=== PATIENT | female | born 1980 | race American Indian/Alaskan Native ===

== ENCOUNTER 2021-01-09 08:46 | Emergency (ER) | payer SELFPAY ==
--- NOTE | 2021-01-09 09:13 | Emergency Department Report ---
ED Seizure HPI - General Stated Complaint: SEIZURE Time Seen by Provider: 01/09/21 08:58 Source: patient, EMS Mode of arrival: Stretcher Limitations: No Limitations - History of Present Illness Initial Comments: 41-year-old female the past medical history of seizures, heavy alcohol use, and anxiety presents to the hospital with "seizure-like activity". Patient apparently was found by EMS with a heart rate in 170s, tachypneic, with cramping/contraction of her fingers and jaw. Patient states she has been feeling upset and anxious since last night and her anxiety got the best of her this morning. She had uncontrollable contractions of her fingers which then spread to her feet and her jaw. Patient has had similar reactions in the past secondary to anxiety. Patient received Versed 2 mg with improvement in symptoms and vital signs. Patient has a history of grand mal seizures. Last dose of Keppra was this a.m. patient complains of generalized muscle aches secondary to muscle contractions. Patient also takes Depakote. Patient admits to drinking 1/2 pint of vodka several days a week. - Related Data Previous Rx's Medication Instructions Recorded Last Taken Type levETIRAcetam [Keppra TAB] 500 mg PO BID #60 tablet 11/06/19 Unknown Rx Ondansetron [Zofran Odt] 4 mg PO Q8HR PRN #14 tab.rapdis 01/09/21 Unknown Rx Potassium Chloride [K-Dur] 20 meq PO BID #4 tab 01/09/21 Unknown Rx Allergies Allergy/AdvReac Type Severity Reaction Status Date / Time Penicillins AdvReac Itching Verified 11/06/19 14:38 ED Review of Systems ROS: Stated complaint: SEIZURE Other details as noted in HPI Comment: All other systems reviewed and negative ED Past Medical Hx - Past Medical History Hx Seizures: Yes - Social History Smoking Status: Never Smoker - Medications Home Medications: Home Medications Medication Instructions Recorded Confirmed Last Taken Type levETIRAcetam [Keppra TAB] 500 mg PO BID #60 tablet 11/06/19 Unknown Rx Ondansetron [Zofran Odt] 4 mg PO Q8HR PRN #14 tab.rapdis 01/09/21 Unknown Rx Potassium Chloride [K-Dur] 20 meq PO BID #4 tab 01/09/21 Unknown Rx ED Physical Exam - Other Other exam information: General: No acute distress Head: Atraumatic Eyes: normal appearance ENT: Moist mucous membranes Neck: Normal appearance, no midline tenderness Chest: Clear to auscultation bilaterally CV: Regular rate and rhythm Abdomen: Soft, normal bowel sounds, nontender, nondistended, no rebound or guarding Back: Normal inspection Extremity: Normal inspection, full range of motion Neuro: Alert O x 3, no facial asymmetry, speech clear, no gross motor sensory deficit Psych: Appropriate behavior Skin: No rash ED Course Vital Signs 01/09/21 09:39 Temperature 98.2 F Pulse Rate 94 H Respiratory 14 Rate Blood Pressure 102/59 O2 Sat by Pulse 100 Oximetry - Reevaluation(s) Reevaluation #1: 01/09/21 15:44 Patient feels much better after ED treatment. ED Medical Decision Making - Lab Data Result diagrams: 01/09/21 09:01 01/09/21 15:07 Lab Results 01/09/21 01/09/21 01/09/21 Range/Units 09:01 09:01 09:01 WBC 6.0 (4.5-11.0) K/mm3 RBC 3.59 L (3.65-5.03) M/mm3 Hgb 12.9 (10.1-14.3) gm/dl Hct 37.1 (30.3-42.9) % MCV 103 H (79-97) fl MCH 36 H (28-32) pg MCHC 35 H (30-34) % RDW 17.4 H (13.2-15.2) % Plt Count 140 (140-440) K/mm3 Lymph % (Auto) 22.2 (13.4-35.0) % [place] % (Auto) 9.4 H (0.0-7.3) % Eos % (Auto) 0.1 (0.0-4.3) % Baso % (Auto) 0.5 (0.0-1.8) % Lymph # (Auto) 1.3 (1.2-5.4) K/mm3 [place] # (Auto) 0.6 (0.0-0.8) K/mm3 Eos # (Auto) 0.0 (0.0-0.4) K/mm3 Baso # (Auto) 0.0 (0.0-0.1) K/mm3 Seg Neutrophils % 67.8 (40.0-70.0) % Seg Neutrophils # 4.1 (1.8-7.7) K/mm3 Sodium 144 (137-145) mmol/L Potassium 2.5 L* (3.6-5.0) mmol/L Chloride 95.2 L (98-107) mmol/L Carbon Dioxide 19 L (22-30) mmol/L Anion Gap 32 mmol/L BUN 5 L (7-17) mg/dL Creatinine 0.4 L (0.6-1.2) mg/dL Estimated GFR > 60 ml/min BUN/Creatinine Ratio 13 % Glucose 75 (65-100) mg/dL Calcium 8.7 (8.4-10.2) mg/dL Magnesium 1.40 L (1.7-2.3) mg/dL HCG, Qual (Negative) Urine Color (Yellow) Urine Turbidity (Clear) Urine pH (5.0-7.0) Ur Specific [place] (1.003-1.030) Urine Protein (Negative) mg/dL Urine Glucose (UA) (Negative) mg/dL Urine Ketones (Negative) mg/dL Urine Blood (Negative) Urine Nitrite (Negative) Urine Bilirubin (Negative) Urine Urobilinogen (<2.0) mg/dL Ur Leukocyte Esterase (Negative) Urine WBC (Auto) (0.0-6.0) /HPF Urine RBC (Auto) (0.0-6.0) /HPF U Epithel Cells (Auto) (0-13.0) /HPF Urine Bacteria (Auto) (Negative) /HPF Urine Mucus /HPF Urine Opiates Screen Urine Methadone Screen Ur Barbiturates Screen Ur Phencyclidine Scrn Ur Amphetamines Screen U Benzodiazepines Scrn Urine Cocaine Screen U Marijuana (THC) Screen Drugs of Abuse Note Plasma/Serum Alcohol 0.07 (0-0.07) % 01/09/21 01/09/21 01/09/21 Range/Units 09:01 09:51 09:51 WBC (4.5-11.0) K/mm3 RBC (3.65-5.03) M/mm3 Hgb (10.1-14.3) gm/dl Hct (30.3-42.9) % MCV (79-97) fl MCH (28-32) pg MCHC (30-34) % RDW (13.2-15.2) % Plt Count (140-440) K/mm3 Lymph % (Auto) (13.4-35.0) % [place] % (Auto) (0.0-7.3) % Eos % (Auto) (0.0-4.3) % Baso % (Auto) (0.0-1.8) % Lymph # (Auto) (1.2-5.4) K/mm3 [place] # (Auto) (0.0-0.8) K/mm3 Eos # (Auto) (0.0-0.4) K/mm3 Baso # (Auto) (0.0-0.1) K/mm3 Seg Neutrophils % (40.0-70.0) % Seg Neutrophils # (1.8-7.7) K/mm3 Sodium (137-145) mmol/L Potassium (3.6-5.0) mmol/L Chloride (98-107) mmol/L Carbon Dioxide (22-30) mmol/L Anion Gap mmol/L BUN (7-17) mg/dL Creatinine (0.6-1.2) mg/dL Estimated GFR ml/min BUN/Creatinine Ratio % Glucose (65-100) mg/dL Calcium (8.4-10.2) mg/dL Magnesium (1.7-2.3) mg/dL HCG, Qual Negative (Negative) Urine Color [place] (Yellow) Urine Turbidity Hazy (Clear) Urine pH 6.0 (5.0-7.0) Ur Specific [place] 1.020 (1.003-1.030) Urine Protein 100 mg/dl (Negative) mg/dL Urine Glucose (UA) Neg (Negative) mg/dL Urine Ketones 80 (Negative) mg/dL Urine Blood Neg (Negative) Urine Nitrite Pos (Negative) Urine Bilirubin Neg (Negative) Urine Urobilinogen 2.0 (<2.0) mg/dL Ur Leukocyte Esterase Tr (Negative) Urine WBC (Auto) 11.0 H (0.0-6.0) /HPF Urine RBC (Auto) 3.0 (0.0-6.0) /HPF U Epithel Cells (Auto) 12.0 (0-13.0) /HPF Urine Bacteria (Auto) 2+ (Negative) /HPF Urine Mucus 3+ /HPF Urine Opiates Screen Negative Urine Methadone Screen Negative Ur Barbiturates Screen Negative Ur Phencyclidine Scrn Negative Ur Amphetamines Screen Negative U Benzodiazepines Scrn Positive Urine Cocaine Screen Negative U Marijuana (THC) Screen Positive Drugs of Abuse Note Disclamer Plasma/Serum Alcohol (0-0.07) % 01/09/21 Range/Units 15:07 WBC (4.5-11.0) K/mm3 RBC (3.65-5.03) M/mm3 Hgb (10.1-14.3) gm/dl Hct (30.3-42.9) % MCV (79-97) fl MCH (28-32) pg MCHC (30-34) % RDW (13.2-15.2) % Plt Count (140-440) K/mm3 Lymph % (Auto) (13.4-35.0) % [place] % (Auto) (0.0-7.3) % Eos % (Auto) (0.0-4.3) % Baso % (Auto) (0.0-1.8) % Lymph # (Auto) (1.2-5.4) K/mm3 [place] # (Auto) (0.0-0.8) K/mm3 Eos # (Auto) (0.0-0.4) K/mm3 Baso # (Auto) (0.0-0.1) K/mm3 Seg Neutrophils % (40.0-70.0) % Seg Neutrophils # (1.8-7.7) K/mm3 Sodium 143 (137-145) mmol/L Potassium 4.1 D (3.6-5.0) mmol/L Chloride 102.6 (98-107) mmol/L Carbon Dioxide 22 (22-30) mmol/L Anion Gap 23 mmol/L BUN 4 L (7-17) mg/dL Creatinine 0.3 L (0.6-1.2) mg/dL Estimated GFR > 60 ml/min BUN/Creatinine Ratio 13 % Glucose 76 (65-100) mg/dL Calcium 7.6 L (8.4-10.2) mg/dL Magnesium (1.7-2.3) mg/dL HCG, Qual (Negative) Urine Color (Yellow) Urine Turbidity (Clear) Urine pH (5.0-7.0) Ur Specific [place] (1.003-1.030) Urine Protein (Negative) mg/dL Urine Glucose (UA) (Negative) mg/dL Urine Ketones (Negative) mg/dL Urine Blood (Negative) Urine Nitrite (Negative) Urine Bilirubin (Negative) Urine Urobilinogen (<2.0) mg/dL Ur Leukocyte Esterase (Negative) Urine WBC (Auto) (0.0-6.0) /HPF Urine RBC (Auto) (0.0-6.0) /HPF U Epithel Cells (Auto) (0-13.0) /HPF Urine Bacteria (Auto) (Negative) /HPF Urine Mucus /HPF Urine Opiates Screen Urine Methadone Screen Ur Barbiturates Screen Ur Phencyclidine Scrn Ur Amphetamines Screen U Benzodiazepines Scrn Urine Cocaine Screen U Marijuana (THC) Screen Drugs of Abuse Note Plasma/Serum Alcohol (0-0.07) % - EKG Data -: EKG Interpreted by Me EKG shows normal: sinus rhythm, intervals (Prolonged QT QTC 518), QRS complexes (QRS duration 94), ST-T waves (Anterior T wave inversions. No ST elevation OR) Rate: normal (89) - Medical Decision Making 41-year-old female presents to the hospital with significant carpopedal spasms, tachypnea, tachycardia prior to arrival. Treated with Versed. Symptoms likely secondary to either anxiety/panic attack as well as electrolyte abnormalities. Patient admits to heavy alcohol use with history of pancreatitis. Patient counseled on importance of cessation of alcohol however, also counseled about the risk of withdrawal symptoms if she has significant alcohol dependence. Positive UTI. Patient was treated with normal saline, IV and p.o. potassium, IV magnesium, banana bag, D5 NS, and Zofran with improvement in symptoms and improvement in laboratory values (hypokalemia and anion gap acidosis). Patient states "I feel much better". Patient will be discharged with meds - Differential Diagnosis Anxiety, seizure, electrolyte abnormalities, alcohol withdrawal Critical Care Time: No Critical care attestation.: If time is entered above; I have spent that time in minutes in the direct care of this critically ill patient, excluding procedure time. ED Disposition Clinical Impression: Panic attack, Carpopedal spasm, Alcohol abuse, Hypokalemia, Hypomagnesemia, Seizure disorder Disposition: 01 HOME / SELF CARE / HOMELESS Is pt being admited?: No Does the pt Need Aspirin: No Condition: Stable Instructions: Panic Attack, [id number], Alcohol Abuse and Dependence Information, Adult, Managing Anxiety, Adult, Hypokalemia, Hypomagnesemia, Seizure, Adult, [id number] Additional Instructions: Take the medication as prescribed. Follow-up with your doctor or doctor/clinic provided. Return if symptoms worsen as indicated by your discharge instructions. SUBSTANCE ABUSE PROGRAMS: Sober Living [place]: Location: [place], [place] Address: [address] [place] [address] [facility]: Address: [address] [place] [address] [facility]: Address: [address] [place] [address] [facility]: Address: [address] [place] [address] Prescriptions: Potassium Chloride [K-Dur] 20 meq PO BID #4 tab Ondansetron [Zofran Odt] 4 mg PO Q8HR PRN #14 tab.rapdis PRN Reason: Nausea And Vomiting Referrals: PRIMARY CARE, [Primary Care Provider] - 3-5 Days [facility] [Provider Group] - 3-5 Days Time of Disposition: 15:50
[2021-01-09 09:17] LABS: Basophils % (Auto) 0.5 % (0.0-1.8); Eosinophils % (Auto) 0.1 % (0.0-4.3); Hematocrit 37.1 % (30.3-42.9); Hemoglobin 12.9 gm/dl (10.1-14.3); Lymphocytes # (Auto) 1.3 K/mm3 (1.2-5.4); Lymphocytes % (Auto) 22.2 % (13.4-35.0); Mean Corpuscular HGB Conc 35 % (30-34); Mean Corpuscular Volume 103 fl (79-97); Monocytes # (Auto) 0.6 K/mm3 (0.0-0.8); Monocytes % (Auto) 9.4 % (0.0-7.3); Platelet Count 140 K/mm3 (140-440); Red Blood Count 3.59 M/mm3 (3.65-5.03); Red Cell Distribution Width 17.4 % (13.2-15.2)
[2021-01-09 09:30] LABS: Blood Urea Nitrogen 5 mg/dL (7-17); Calcium 8.7 mg/dL (8.4-10.2); Hemolysis Index 18
[2021-01-09 09:32] LABS: BUN/Creatinine Ratio 13
[2021-01-09] MEDS ORDERED: KETOROLAC 30 MG/1 ML INJ IV ONE (09:32)
[2021-01-09] MEDS ORDERED: MAGNESIUM SULFATE 2 GM/50 ML BAG IV ONE (09:44)
[2021-01-09] MEDS ORDERED: POTASSIUM CHLORIDE ER 20 MEQ TAB PO ONE (09:44)
[2021-01-09] MEDS ORDERED: THIAMINE 100 MG, FOLIC ACID 1 MG, MULTIPLE VITAMIN INJ, ADULT 10 ML in SODIUM CHLORIDE ... IV NR (10:00)
[2021-01-09 10:24] LABS: Amphetamine Screen,Urine Negative; Cocaine Screen,Urine Negative; Methadone Screen,Urine Negative; Opiate Screen,Urine Negative
[2021-01-09] MEDS ORDERED: POTASSIUM CHLORIDE 10 MEQ 10 MEQ/100 ML BAG IV ONE (10:28)
[2021-01-09 10:40] LABS: Benzodiazepines Screen,Urine Positive; Cannabinoid Screen,Urine Positive
[2021-01-09] MEDS ORDERED: SODIUM CHLORIDE 0.9% 1000 ML 1,000 ML ONE (12:47)
[2021-01-09 13:23] LABS: Bacteria,Urine 2+ /HPF (Negative); Bilirubin,Urine NEG (Negative); Blood,Urine NEG (Negative); Color,Urine Amber (Yellow); Mucus,Urine 3+ /HPF
[2021-01-09] MEDS ORDERED: NITROFURANTOIN MONOHYD/M-CRYST 100 MG CAP PO ONE (13:59)
[2021-01-09] MEDS ORDERED: D5W/0.9% NACL 1,000 ML IV SCH (14:00)
[2021-01-09] MEDS ORDERED: ONDANSETRON 4 MG/2 ML INJ IV ONE (14:20)
[2021-01-09] MEDS ORDERED: LORazepam 2 MG TAB PO PRN ×2 (14:24)
[2021-01-09 15:37] LABS: Blood Urea Nitrogen 4 mg/dL (7-17); Calcium 7.6 mg/dL (8.4-10.2); Hemolysis Index 21
[2021-01-09 15:38] LABS: BUN/Creatinine Ratio 13
[2021-01-09 15:49] VITALS: BP 124/76
--- NOTE | 2021-01-13 10:09 | Electrocardiograph Report ---
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
== END 2021-01-09 15:55 | disposition home or self-care (01) ==
LOC: ED 08:46
DX: F41.0 Panic disorder [episodic paroxysmal anxiety] (principal); E87.6 Hypokalemia; G40.909 Epilepsy, unspecified, not intractable, without status epilepticus; E83.42 Hypomagnesemia; R29.0 Tetany; Z88.0 Allergy status to penicillin; Z79.899 Other long term (current) drug therapy
CPT/HCPCS: 36415; 80048; 80307; 81001; 83735; 84703; 85025; 87076; 87086; 87186; 93005; 96365; 96366; 96367; 96375; 99284; J1885; J2405; J3411; J3475; J3480; J7030; J7042; 80320; G0480

== ENCOUNTER 2021-03-16 15:57 | Inpatient (IN) | payer SELFPAY ==
[2021-03-16] MEDS ORDERED: SODIUM CHLORIDE 0.9% 1000 ML 1,000 ML IV ONE (18:07)
[2021-03-16] MEDS ORDERED: levETIRAcetam 500 MG TAB PO ONE (18:08)
[2021-03-16] MEDS ORDERED: ONDANSETRON 4 MG/2 ML INJ IV ONE (18:08)
--- NOTE | 2021-03-16 18:13 | Emergency Department Report ---
HPI - General Chief Complaint: Anxiety Time Seen by Provider: 03/16/21 17:51 - HPI HPI: 41-year-old female with history of seizure disorder on Keppra and Depakote presents via EMS after she apparently had a seizure this morning. The patient states that today she has felt nauseated all day and every time she tries to eat she has vomited multiple times. She says later in the day she began to experience cramping in her hands and anxiety which she says typically happens before she has a seizure. She says after that she called 911 and paramedics arrived. According to the EMS report, the patient never displayed any seizure- like activity or postictal state but was in fact anxious appearing. The patient states that she has taken all doses of her seizure medication but threw up her Keppra this morning due to nausea. She has some mild abdominal pain which she says is worse on the right side. The patient also admits to drinking approximately 1 pint of liquor per day. She denies use of any other substances or cigarettes. There are otherwise no known aggravating or alleviating factors. Her LMP was March 11. She denies any associated fever/chills, headache, vision change, neck pain, chest pain, shortness of breath, cough, dysuria, back pain, focal weakness, sensory changes, vaginal bleeding, vaginal discharge, or any other complaints. ED Past Medical Hx - Past Medical History Previous Medical History?: Yes Hx Seizures: Yes Additional medical history: anxiety - Social History Smoking Status: Never Smoker Substance Use Type: Alcohol (1 pint liquor/day) - Medications Home Medications: Home Medications Medication Instructions Recorded Confirmed Last Taken Type levETIRAcetam [Keppra TAB] 500 mg PO BID #60 tablet 11/06/19 Unknown Rx Nitrofurantoin Juab/M-Cryst 100 mg PO Q12HR #10 capsule 01/09/21 Unknown Rx [Macrobid CAP] Ondansetron [Zofran Odt] 4 mg PO Q8HR PRN #14 tab.rapdis 01/09/21 Unknown Rx Potassium Chloride [K-Dur] 20 meq PO BID #4 tab 01/09/21 Unknown Rx ED Review of Systems ROS: Stated complaint: ANXIETY Other details as noted in HPI Constitutional: denies: chills, fever Eyes: denies: eye pain, vision change ENT: denies: throat pain, congestion Respiratory: denies: cough, shortness of breath Cardiovascular: denies: chest pain, palpitations, syncope Gastrointestinal: abdominal pain, nausea, vomiting. denies: diarrhea, constipation Genitourinary: denies: dysuria, frequency, hematuria, discharge Musculoskeletal: denies: back pain, joint swelling Skin: denies: rash, lesions Neurological: denies: headache, weakness, numbness, paresthesias Psychiatric: anxiety. denies: depression Physical Exam - Physical Exam Vital Signs: Vital Signs 03/16/21 15:58 Temperature 98.9 F Pulse Rate 99 H Respiratory 14 Rate Blood Pressure 129/86 [Left] O2 Sat by Pulse 100 Oximetry Physical Exam: GENERAL: Well developed and well nourished. No acute distress HEAD: Normocephalic. No obvious signs of trauma. ENT: Dry mucous membranes. EYES: Extraocular movements are intact. Pupils are equal round and reactive to light bilaterally. Scleral icterus bilaterally NECK: Supple. Full ROM is intact. Trachea is midline. LUNGS: Nonlabored breathing. Equal chest rise bilaterally. Clear to auscultation bilaterally. CARDIOVASCULAR: Tachycardic but with regular rhythm. No murmurs or rubs. VASCULAR: Cap refill < 2 seconds ABDOMEN: Abdomen is soft and nondistended. There is tenderness to palpation of the right upper quadrant with hepatomegaly. There is no guarding or rebound tenderness. SKIN: Skin is warm and dry NEURO: Patient is awake, alert, and oriented. 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 No focal deficits. Normal motor and sensory exam throughout. Normal speech. MUSCULOSKELETAL: No obvious deformities. No significant tenderness. Normal ROM throughout. BACK/SPINE: No midline tenderness or step-offs of the C/T/L spine. No costovertebral angle tenderness. ED Course Vital Signs 03/16/21 15:58 Temperature 98.9 F Pulse Rate 99 H Respiratory 14 Rate Blood Pressure 129/86 [Left] O2 Sat by Pulse 100 Oximetry ED Medical Decision Making - Lab Data Result diagrams: 03/16/21 19:04 03/16/21 19:04 - EKG Data -: EKG Interpreted by Me - EKG Data 03/16/21 18:16 Normal sinus rhythm. Normal axis. There is prolonged QT with QTC of 547. Ot herwise normal intervals. No ectopy. Nonspecific T wave inversions. There are no significant ST segment abnormalities. - Radiology Data Radiology results: report reviewed - Medical Decision Making 41-year-old female presenting after she apparently had a seizure at home although EMS denies that the patient had any seizure-like activity or postictal state. Nonetheless, patient has had 1 day of abdominal pain and nausea/vomiting and admits to vomiting her morning dose of Keppra today. Of note, patient admits to drinking 1 pint of liquor per day and her last drink was last night. She is afebrile and with normal vital signs although on my exam the patient is tachycardic in the 110s. Physical examination reveals dry mucous membranes as well as scleral icterus and right upper quadrant tenderness in the abdomen with hepatomegaly. She is alert and oriented and has a nonfocal neurologic exam. We will perform broad work-up with a full set of labs to include LFTs, lipase, , and alcohol levels. We will also obtain ultrasound of the right upper quadrant to assess for evidence of cholecystitis versus choledocholi thiasis. We will obtain CT of the abdomen and pelvis with IV contrast to assess for evidence of pancreatitis, cholecystitis, appendicitis, colitis, diverticulitis, versus other intra-abdominal abnormality to explain the patient's symptoms. We will give 1 L of IV fluids, Zofran, and her morning dose of Keppra. Patient's EKG reveals no ischemic findings but there is prolonged QT interval. We will therefore give 2 mg of magnesium continue to monitor closely. Labs reveal no significant leukocytosis or anemia. Kidney function is normal. However, there are several electrolyte abnormalities including hypokalemia with potassium of 3.1, which we will replete. There is hypomagnesemia with magnesium of 1.4 which we have already repleted. T bili is elevated at 6.6 with D bili of 4.4. AST is mildly elevated at 200. Alk phos is mildly elevated at 200. Right upper quadrant ultrasound reveals only hepatomegaly with normal diameter CBD. CT of the abdomen pelvis reveals hepatomegaly and steatosis without any other acute findings. Given the patient has findings consistent with acute liver failure likely related to chronic alcohol use, she will require admission to the hospital for further work-up and management. We will also initiate CINY protocol. This was discussed with the patient expressed understanding agreement with this plan of care. I spoke with Dr. Hager, the on-call hospitalist regarding the case accepts the patient for admission and will assume care. Critical care attestation.: If time is entered above; I have spent that time in minutes in the direct care of this critically ill patient, excluding procedure time. ED Disposition Clinical Impression: Hypokalemia, Hypomagnesemia, Prolonged QT interval, Acute liver failure, Alcohol use disorder Disposition: 09 ADMITTED INPATIENT Is pt being admited?: Yes
[2021-03-16] MEDS ORDERED: MAGNESIUM SULFATE 2 GM/50 ML BAG IV ONE (18:16)
--- NOTE | 2021-03-16 19:21 | Ultrasound Report ---
ULTRASOUND ABDOMEN, LIMITED (RIGHT UPPER QUADRANT) INDICATION: RUQ tend + hepatomegaly. COMPARISON: None available. FINDINGS: Pancreas: Not well seen. The imaged portions are unremarkable. Liver: The liver is enlarged measuring 19.1 cm. There is increased echogenicity throughout the liver. Gallbladder: Normal. Bile ducts: Normal. Common Bile Duct measures 2 mm. Free fluid: None. Additional Findings: None. IMPRESSION: 1. There is hepatomegaly. There is increased echogenicity in the liver likely representing fatty infi ltration. Signer Name: Sarabjit Frias MD Signed: 03/16/2021 7:16 PM Workstation Name: [id number]
[2021-03-16 19:25] LABS: Basophils % (Auto) 0.1 % (0.0-1.8); Hematocrit 37.3 % (30.3-42.9); Hemoglobin 12.5 gm/dl (10.1-14.3); Lymphocytes # (Auto) 0.9 K/mm3 (1.2-5.4); Mean Corpuscular HGB Conc 33 % (30-34); Mean Corpuscular Volume 103 fl (79-97); Monocytes # (Auto) 0.6 K/mm3 (0.0-0.8); Monocytes % (Auto) 9.2 % (0.0-7.3); Red Blood Count 3.61 M/mm3 (3.65-5.03); Red Cell Distribution Width 15.2 % (13.2-15.2)
[2021-03-16 19:36] LABS: Platelet Count 95 K/mm3 (140-440)
[2021-03-16 19:50] LABS: Alanine Aminotransferase 54 units/L (7-56); Albumin 3.5 g/dL (3.9-5); Bilirubin,Direct 4.4 mg/dL (0-0.2); Blood Urea Nitrogen 2 mg/dL (7-17); Calcium 8.8 mg/dL (8.4-10.2); Hemolysis Index 6
[2021-03-16 20:13] LABS: BUN/Creatinine Ratio 7
[2021-03-16 20:20] LABS: Bacteria,Urine 4+ /HPF (Negative); Bilirubin,Urine MOD (Negative); Blood,Urine NEG (Negative); Color,Urine Amber (Yellow); Mucus,Urine 3+ /HPF
[2021-03-16] MEDS ORDERED: POTASSIUM CHLORIDE ER 20 MEQ TAB PO ONE (20:31)
[2021-03-16 20:36] LABS: Amphetamine Screen,Urine PRESUMPTIVE NEGATIVE; Benzodiazepines Screen,Urine PRESUMPTIVE NEGATIVE; Cannabinoid Screen,Urine PRESUMPTIVE POSITIVE; Cocaine Screen,Urine PRESUMPTIVE NEGATIVE; Methadone Screen,Urine PRESUMPTIVE NEGATIVE; Opiate Screen,Urine PRESUMPTIVE NEGATIVE
[2021-03-16 20:39] LABS: Ictotest,Urine Positive (Negative)
[2021-03-16] MEDS: POTASSIUM CHLORIDE 10 MEQ 10 MEQ/100 ML BAG IV SCH (21:07)
[2021-03-16 21:11] LABS: INR 1.36 (0.87-1.13)
[2021-03-16 21:12] LABS: Partial Thromboplastin Time 34.1 Sec. (24.2-36.6)
--- NOTE | 2021-03-16 22:04 | Cat Scan Report ---
CT ABDOMEN AND PELVIS WITH CONTRAST INDICATION / CLINICAL INFORMATION: R.U.Q. tenderness + Jaundice. TECHNIQUE: Axial CT images were obtained through the abdomen and pelvis after 100 cc Omnipaque [address] scans at this location are performed using CT dose reduction for ALARA by means of automated exposure control. COMPARISON: Limited abdominal ultrasound from earlier today. FINDINGS: LOWER CHEST: No significant abnormality. LIVER: Hepatomegaly and steatosis is again noted without other significant abnormalities. BILIARY: The gallbladder is unremarkable. No biliary ductal dilatation. PANCREAS: Generalized atrophy is noted with diffuse calcification, consistent with chronic pancreatit is. No other significant abnormality. SPLEEN: No significant abnormality. ADRENALS: No significant abnormality. KIDNEYS / URETERS: A simple cyst is seen anteriorly along the mid pole of the right kidney measuring up to 1.3 cm. No other significant abnormality. GI TRACT: No significant abnormality of the stomach, small bowel or colon. The appendix is unremarkab le. PERITONEUM: No free fluid. No free air. No fluid collection. LYMPH NODES: No significant adenopathy. VASCULATURE: No significant abnormality. URINARY BLADDER: No significant abnormality. REPRODUCTIVE ORGANS: No significant abnormality. ADDITIONAL FINDINGS: None. BONES: No significant abnormality. IMPRESSION: 1. Hepatomegaly and steatosis without other acute findings to explain the patient's right upper quadr ant tenderness/jaundice. Please correlate with liver function testing. 2. Additional findings as above. Signer Name: Jean Martino MD Signed: 03/16/2021 9:59 PM Workstation Name: [id number]
[2021-03-16] MEDS ORDERED: MAGNESIUM HYDROXIDE (MOM) ORAL LIQD UDC PO PRN (22:33)
[2021-03-16] MEDS ORDERED: MORPHINE 4 MG/1 ML INJ IV PRN (22:33)
[2021-03-16] MEDS ORDERED: IBUPROFEN 600 MG TAB PO PRN (22:33)
[2021-03-16] MEDS ORDERED: LORazepam 2 MG/ML VIAL IV PRN ×3 (22:37)
--- NOTE | 2021-03-16 22:44 | History and Physical Report ---
History of Present Illness Date of examination: 03/16/21 Date of admission: 03/16/21 21:46 Chief complaint: Anxiety Possible Seizure History of present illness: 41-year-old -[place] female with known history of seizure disorder on Keppra and Depakote presents to the emergency room via EMS today complaining of anxiety and possible seizure earlier this morning. Patient indicates that she has been having multiple episodes of nausea and vomiting today and has been having some cramps in her hands. She also indicates that she feels anxious and therefore called EMS. Patient has been compliant with her medications but has not been able to keep her medications down due to the nausea and vomiting earlier today. She drinks about a pint of alcohol almost on a daily basis. She denies any other illicit drug use. Patient denies any chest pain, no cough or shortness of breath, no headache or dizziness and no diaphoresis. She denies any fever or chills, denies any sick contacts and no recent travel, denies any contact with anyone with COVID-19. She admits she has not been fully vaccinated against COVID-19 due to her zoroastrianism beliefs. She denies any hematuria or dysuria. No bright red blood per rectum and no melena. Work-up in the emergency room today, significant findings were that of hypokalemia of 3.1, elevated AST of 200, magnesium of 1.4, UDS was positive for marijuana. EKG shows some prolonged QT. Abdominal ultrasound shows hepatomegaly and increased echogenicity in the liver likely representing fatty infiltration. Past History Past Medical History: seizures, other (Anxiety) Past Surgical History: Other (Bilateral tubal ligation) Social history: alcohol abuse (Drinks almost 1 pint of alcohol daily) Family history: no significant family history Medications and Allergies Allergies Allergy/AdvReac Type Severity Reaction Status Date / Time Penicillins AdvReac Itching Verified 03/16/21 16:04 Home Medications Medication Instructions Recorded Confirmed Last Taken Type levETIRAcetam [Keppra TAB] 500 mg PO BID #60 tablet 11/06/19 03/17/21 03/16/21 Rx Nitrofurantoin [place]/M-Cryst 100 mg PO Q12HR #10 capsule 01/09/21 03/17/2102/24 Rx [Macrobid CAP] Ondansetron [Zofran Odt] 4 mg PO Q8HR PRN #14 tab.rapdis 01/09/21 03/17/21 03/16/21 Rx Potassium Chloride [K-Dur] 20 meq PO BID #4 tab 01/09/21 03/17/21 03/16/21 Rx Active Meds: Active Medications Heparin Sodium (Porcine) (Heparin 5,000 Unit/1 Ml Vial) 5,000 unit SUB-Q Q8HR [facility]Y Potassium Chloride (Kcl 10meq/100ml) 10 meq in 100 mls @ 100 mls/hr IV Q1H [facility]Y Stop: 03/17/21 00:59 Last Admin: 03/16/21 21:07 Dose: 100 mls/hr Documented by: Sodium Chloride (Nacl 0.9% 1000 Ml) 1,000 mls @ 75 mls/hr IV DIRECT HALEY Ibuprofen (Ibuprofen 600 Mg Tab) 600 mg PO Q6H PRN PRN Reason: Pain, Mild (1-3) Lorazepam (Lorazepam 2 Mg/Ml Vial) 2 mg IV Q1H PRN PRN Reason: CIWA-Ar 8-15 Lorazepam (Lorazepam 2 Mg/Ml Vial) 4 mg IV Q1H PRN PRN Reason: CIWA-Ar 16-25 Lorazepam (Lorazepam 2 Mg/Ml Vial) 4 mg IV Q15MIN PRN PRN Reason: CIWA-Ar >25 Magnesium Hydroxide (Magnesium Hydroxide (Mom) Oral Liqd Udc) 30 ml PO Q4H PRN PRN Reason: Constipation Morphine Sulfate (Morphine 2 Mg/1 Ml Inj) 2 mg IV Q4H PRN PRN Reason: Pain, Moderate (4-6) Morphine Sulfate (Morphine 4 Mg/1 Ml Inj) 4 mg IV Q4H PRN PRN Reason: Pain , Severe (7-10) Ondansetron HCl (Ondansetron 4 Mg/2 Ml Inj) 4 mg IV Q8H PRN PRN Reason: Nausea And Vomiting Sodium Chloride (Sodium Chloride 0.9% 10 Ml Flush Syringe) 10 ml IV BID HALEY Sodium Chloride (Sodium Chloride 0.9% 10 Ml Flush Syringe) 10 ml IV PRN PRN PRN Reason: LINE FLUSH Review of Systems Constitutional: no fever, no chills Ears, nose, mouth and throat: no nasal congestion, no sore throat Cardiovascular: no chest pain, no palpitations Respiratory: no cough, no shortness of breath Gastrointestinal: abdominal pain, nausea, vomiting, no diarrhea Genitourinary Female: no pelvic pain, no flank pain, no dysuria, no hematuria Musculoskeletal: no neck pain, no low back pain Integumentary: no rash, no pruritis Neurological: no headaches, no confusion Psychiatric: no anxiety, no depression Endocrine: no polyphagia, no polydipsia, no polyuria, no nocturia Exam - Constitutional Vitals: Temp Pulse Resp BP Pulse Ox 98.9 F 99 H 14 129/86 100 03/16/21 15:58 03/16/21 15:58 03/16/21 15:58 03/16/21 15:58 03/16/21 15:58 General appearance: Present: no acute distress, well-nourished - EENT Eyes: Present: PERRL, EOM intact, scleral icterus (Moderate jaundice) ENT: hearing intact, clear oral mucosa, dentition normal - Neck Neck: Present: supple, normal ROM - Respiratory Respiratory effort: normal Respiratory: bilateral: CTA - Cardiovascular Rhythm: regular Heart Sounds: Present: S1 & S2. Absent: gallop, systolic murmur, diastolic murmur, rub, click - Extremities Extremities: no ischemia, pulses intact, pulses symmetrical, No edema, normal temperature, normal color, Full ROM Peripheral Pulses: within normal limits - Abdominal General gastrointestinal: Present: soft, tender (Mild tenderness in the epigastric tenderness, no guarding and no rebound tenderness), non-distended, normal bowel sounds. Absent: mass - Integumentary Integumentary: Present: clear, warm, dry, normal turgor. Absent: rash - Musculoskeletal Musculoskeletal: strength equal bilaterally - Psychiatric Psychiatric: appropriate mood/affect, intact judgment & insight, memory intact, cooperative, other (Appears anxious) - Neurologic Neurologic: CNII-XII intact, no focal deficits, moves all extremities, other (Tremors in outstretched hands) HEART Score - HEART Score Troponin: Troponin T < 0.010 ng/mL (0.00-0.029) 03/16/21 19:04 Results - Labs CBC & Chem 7: 03/16/21 19:04 03/16/21 19:04 Labs: Abnormal lab results 03/16/21 03/16/21 03/16/21 Range/Units 19:04 19:04 20:37 RBC 3.61 L (3.65-5.03) M/mm3 MCV 103 H (79-97) fl MCH 35 H (28-32) pg Plt Count 95 L (140-440) K/mm3 Lymph % (Auto) 13.0 L (13.4-35.0) % [place] % (Auto) 9.2 H (0.0-7.3) % Lymph # (Auto) 0.9 L (1.2-5.4) K/mm3 Seg Neutrophils % 77.7 H (40.0-70.0) % PT 18.1 H (12.2-14.9) Sec. INR 1.36 H (0.87-1.13) Sodium 135 L (137-145) mmol/L Potassium 3.1 L (3.6-5.0) mmol/L Chloride 91.2 L (98-107) mmol/L Carbon Dioxide 21 L (22-30) mmol/L BUN 2 L (7-17) mg/dL Creatinine 0.3 L (0.6-1.2) mg/dL Glucose 111 H (65-100) mg/dL Magnesium 1.40 L (1.7-2.3) mg/dL Total Bilirubin 6.60 H (0.1-1.2) mg/dL Direct Bilirubin 4.4 H (0-0.2) mg/dL AST 200 H (5-40) units/L Alkaline Phosphatase 210 H (35-129) units/L Albumin 3.5 L (3.9-5) g/dL Lipase 5 L (13-60) units/L Urine WBC (Auto) (0.0-6.0) /HPF 03/16/21 Range/Units Unknown RBC (3.65-5.03) M/mm3 MCV (79-97) fl MCH (28-32) pg Plt Count (140-440) K/mm3 Lymph % (Auto) (13.4-35.0) % [place] % (Auto) (0.0-7.3) % Lymph # (Auto) (1.2-5.4) K/mm3 Seg Neutrophils % (40.0-70.0) % PT (12.2-14.9) Sec. INR (0.87-1.13) Sodium (137-145) mmol/L Potassium (3.6-5.0) mmol/L Chloride (98-107) mmol/L Carbon Dioxide (22-30) mmol/L BUN (7-17) mg/dL Creatinine (0.6-1.2) mg/dL Glucose (65-100) mg/dL Magnesium (1.7-2.3) mg/dL Total Bilirubin (0.1-1.2) mg/dL Direct Bilirubin (0-0.2) mg/dL AST (5-40) units/L Alkaline Phosphatase (35-129) units/L Albumin (3.9-5) g/dL Lipase (13-60) units/L Urine WBC (Auto) 7.0 H (0.0-6.0) /HPF Assessment and Plan - Patient Problems (1) Acute liver failure Current Visit: Yes Status: Acute Plan to address problem: Possibly secondary to the alcohol abuse. Consult placed to gastroenterology for evaluation and recommendation. (2) Hypokalemia Current Visit: Yes Status: Acute Plan to address problem: Potassium will be repleted and will monitor chemistry. (3) Hypomagnesemia Current Visit: Yes Status: Acute Plan to address problem: Magnesium will be repleted and will monitor chemistry. (4) Prolonged QT interval Current Visit: Yes Status: Acute Plan to address problem: Possibly secondary to the electrolyte imbalance. We will replete electrolytes We will monitor EKG. (5) Alcohol use disorder Current Visit: Yes Status: Acute Plan to address problem: Patient counseled on quitting alcohol abuse. We will place on CINC protocol. (6) History of seizure disorder Current Visit: Yes Status: Acute Plan to address problem: We will resume routine home medications and also placed on seizure precautions. (7) DVT prophylaxis Current Visit: Yes Status: Acute Plan to address problem: Patient placed on subcutaneous heparin. (8) Full code status Current Visit: Yes Status: Acute Plan to address problem: Patient is full code.
[2021-03-17] MEDS: SODIUM CHLORIDE 0.9% 1000 ML 1,000 ML IV SCH (03:45)
[2021-03-17] MEDS: ONDANSETRON 4 MG/2 ML INJ IV PRN ×3 (03:52→22:08)
[2021-03-17] MEDS: MORPHINE 2 MG/1 ML INJ IV PRN ×2 (03:52→22:08)
[2021-03-17 06:28] LABS: Basophils % (Auto) 0.5 % (0.0-1.8); Eosinophils % (Auto) 0.2 % (0.0-4.3); Hematocrit 33.4 % (30.3-42.9); Lymphocytes # (Auto) 1.2 K/mm3 (1.2-5.4); Lymphocytes % (Auto) 24.9 % (13.4-35.0); Mean Corpuscular HGB Conc 33 % (30-34); Mean Corpuscular Volume 103 fl (79-97); Monocytes # (Auto) 0.5 K/mm3 (0.0-0.8); Monocytes % (Auto) 9.1 % (0.0-7.3); Red Blood Count 3.24 M/mm3 (3.65-5.03); Red Cell Distribution Width 15.6 % (13.2-15.2)
[2021-03-17] MEDS: POTASSIUM CHLORIDE 10 MEQ 10 MEQ/100 ML BAG IV SCH ×2 (06:28→06:29)
[2021-03-17 06:30] LABS: Platelet Count 75 K/mm3 (140-440)
[2021-03-17] MEDS: HEPARIN 5,000 UNIT/1 ML VIAL SUB-Q SCH ×3 (06:31→22:08)
[2021-03-17 06:43] LABS: Calcium 8.1 mg/dL (8.4-10.2); Hemolysis Index 6
[2021-03-17 06:54] LABS: BUN/Creatinine Ratio 3; Blood Urea Nitrogen < 1 mg/dL (7-17)
[2021-03-17] MEDS: NITROFURANTOIN MONOHYD/M-CRYST 100 MG CAP PO SCH ×2 (10:25→22:08)
[2021-03-17] MEDS: levETIRAcetam 500 MG TAB PO SCH ×2 (10:25→22:09)
--- NOTE | 2021-03-17 13:18 | Gastroenterology Consultation ---
History of Present Illness - Reason for Consult Consult date: 03/17/21 abnormal liver enzymes Requesting physician: ZAHRAA WHITAKER - History of Present Illness The patient is a 41 yo female who presents after ? seizure, severe anxiety and n/v. patient awake and alert at time of exam. reports h/o seizures in the past, on anti-epileptic meds. found to have abnormal liver enzymes/jaundice for which GI is consulted. she admits to daily alcohol intake (1/2 pint of liquor) for years. no known prior h/o liver disease. last alcohol intake 2 days ago, denies withdrawal sx's at present time. Past History Past Medical History: seizures, other (Anxiety) Past Surgical History: Other (Bilateral tubal ligation) Social history: alcohol abuse (Drinks almost 1 pint of alcohol daily) Family history: no significant family history Medications and Allergies Allergies Allergy/AdvReac Type Severity Reaction Status Date / Time Penicillins AdvReac Itching Verified 03/16/21 16:04 Home Medications Medication Instructions Recorded Confirmed Last Taken Type levETIRAcetam [Keppra TAB] 500 mg PO BID #60 tablet 11/06/19 03/17/21 03/16/21 Rx Nitrofurantoin [place]/M-Cryst 100 mg PO Q12HR #10 capsule 01/09/21 03/17/21 03/16/21 Rx [Macrobid CAP] Ondansetron [Zofran Odt] 4 mg PO Q8HR PRN #14 tab.rapdis 01/09/21 03/17/21 03/16/21 Rx Potassium Chloride [K-Dur] 20 meq PO BID #4 tab 01/09/21 03/17/21 03/16/[address] [DepaKOTE DR] 125 mg PO BID 03/17/21 03/17/21 03/16/21 History Active Meds: Active Medications Heparin Sodium (Porcine) (Heparin 5,000 Unit/1 Ml Vial) 5,000 unit SUB-Q Q8HR HALEY Last Admin: 03/17/21 06:31 Dose: 5,000 unit Documented by: Sodium Chloride (Nacl 0.9% 1000 Ml) 1,000 mls @ 75 mls/hr IV DIRECT HALEY Last Admin: 03/17/21 03:45 Dose: 75 mls/hr Documented by: Ibuprofen (Ibuprofen 600 Mg Tab) 600 mg PO Q6H PRN PRN Reason: Pain, Mild (1-3) Levetiracetam (Levetiracetam 500 Mg Tab) 500 mg PO BID [facility] Last Admin: 03/17/21 10:25 Dose: 500 mg Documented by: Lorazepam (Lorazepam 2 Mg/Ml Vial) 2 mg IV Q1H PRN PRN Reason: CIWA-Ar 8-15 Last Admin: 03/17/21 06:38 Dose: 2 mg Documented by: Lorazepam (Lorazepam 2 Mg/Ml Vial) 4 mg IV Q1H PRN PRN Reason: CIWA-Ar 16-25 Lorazepam (Lorazepam 2 Mg/Ml Vial) 4 mg IV Q15MIN PRN PRN Reason: CIWA-Ar >25 Magnesium Hydroxide (Magnesium Hydroxide (Mom) Oral Liqd Udc) 30 ml PO Q4H PRN PRN Reason: Constipation Morphine Sulfate (Morphine 2 Mg/1 Ml Inj) 2 mg IV Q4H PRN PRN Reason: Pain, Moderate (4-6) Last Admin: 03/17/21 03:52 Dose: 2 mg Documented by: Morphine Sulfate (Morphine 4 Mg/1 Ml Inj) 4 mg IV Q4H PRN PRN Reason: Pain , Severe (7-10) Nitrofurantoin Macrocrystals (Nitrofurantoin Monohyd/M-Cryst 100 Mg Cap) 100 mg PO Q12HR [facility] Last Admin: 03/17/21 10:25 Dose: 100 mg Documented by: Ondansetron HCl (Ondansetron 4 Mg/2 Ml Inj) 4 mg IV Q8H PRN PRN Reason: Nausea And Vomiting Last Admin: 03/17/21 03:53 Dose: 4 mg Documented by: Sodium Chloride (Sodium Chloride 0.9% 10 Ml Flush Syringe) 10 ml IV BID [facility] Last Admin: 03/17/21 10:25 Dose: 10 ml Documented by: Sodium Chloride (Sodium Chloride 0.9% 10 Ml Flush Syringe) 10 ml IV PRN PRN PRN Reason: LINE FLUSH Reviewed/updated patient's home and current medications Review of Systems - Review of Systems All systems: negative (per HPI) Exam - Constitutional Vital Signs: Temp Pulse Resp BP Pulse Ox 98.3 F 90 16 96/66 97 03/17/21 08:58 03/17/21 08:58 03/17/21 08:58 03/17/21 08:58 03/17/21 08:58 General appearance: no acute distress - EENT Eyes: scleral icterus - Neck Neck: supple - Respiratory Respiratory effort: normal Respiratory: bilateral: CTA - Cardiovascular Rhythm: regular Heart Sounds: Present: S1 & S2 - Gastrointestinal General gastrointestinal: Present: soft, non-tender, non-distended - Integumentary Integumentary: Present: clear, warm - Neurologic Neurological: alert and oriented x3 - Psychiatric Psychiatric: appropriate mood/affect - Labs CBC & Chem 7: 03/17/21 04:50 03/17/21 04:50 Lab Results: Laboratory Results - last 24 hr 03/16/21 03/16/21 03/16/21 19:04 19:04 19:04 WBC 6.8 RBC 3.61 L Hgb 12.5 Hct 37.3 MCV 103 H MCH 35 H MCHC 33 RDW 15.2 Plt Count 95 L Lymph % (Auto) 13.0 L [place] % (Auto) 9.2 H Eos % (Auto) 0.0 Baso % (Auto) 0.1 Lymph # (Auto) 0.9 L [place] # (Auto) 0.6 Eos # (Auto) 0.0 Baso # (Auto) 0.0 Seg Neutrophils % 77.7 H Seg Neutrophils # 5.3 PT INR APTT Sodium 135 L Potassium 3.1 L Chloride 91.2 L Carbon Dioxide 21 L Anion Gap 26 BUN 2 L Creatinine 0.3 L Estimated GFR > 60 BUN/Creatinine Ratio 7 Glucose 111 H Calcium 8.8 Magnesium 1.40 L Total Bilirubin 6.60 H Direct Bilirubin 4.4 H Indirect Bilirubin 2.2 AST 200 H ALT 54 Alkaline Phosphatase 210 H Ammonia 44.0 Troponin T < 0.010 Total Protein 7.5 Albumin 3.5 L Albumin/Globulin Ratio 0.9 Lipase 5 L TSH HCG, Qual Urine Color Urine Turbidity Urine pH Ur Specific [place] Urine Protein Urine Glucose (UA) Urine Ketones Urine Blood Urine Nitrite Urine Bilirubin Urine Ictotest Urine Urobilinogen Ur Leukocyte Esterase Urine WBC (Auto) Urine RBC (Auto) U Epithel Cells (Auto) Urine Bacteria (Auto) Urine Mucus Urine Opiates Screen Urine Methadone Screen Ur Barbiturates Screen Ur Phencyclidine Scrn Ur Amphetamines Screen U Benzodiazepines Scrn Urine Cocaine Screen U Marijuana (THC) Screen Drugs of Abuse Note Plasma/Serum Alcohol 03/16/21 03/16/21 03/16/21 19:04 19:04 19:04 WBC RBC Hgb Hct MCV MCH MCHC RDW Plt Count Lymph % (Auto) [place] % (Auto) Eos % (Auto) Baso % (Auto) Lymph # (Auto) [place] # (Auto) Eos # (Auto) Baso # (Auto) Seg Neutrophils % Seg Neutrophils # PT INR APTT Sodium Potassium Chloride Carbon Dioxide Anion Gap BUN Creatinine Estimated GFR BUN/Creatinine Ratio Glucose Calcium Magnesium Total Bilirubin Direct Bilirubin Indirect Bilirubin AST ALT Alkaline Phosphatase Ammonia Troponin T Total Protein Albumin Albumin/Globulin Ratio Lipase TSH 3.240 HCG, Qual Negative Urine Color Urine Turbidity Urine pH Ur Specific [place] Urine Protein Urine Glucose (UA) Urine Ketones Urine Blood Urine Nitrite Urine Bilirubin Urine Ictotest Urine Urobilinogen Ur Leukocyte Esterase Urine WBC (Auto) Urine RBC (Auto) U Epithel Cells (Auto) Urine Bacteria (Auto) Urine Mucus Urine Opiates Screen Urine Methadone Screen Ur Barbiturates Screen Ur Phencyclidine Scrn Ur Amphetamines Screen U Benzodiazepines Scrn Urine Cocaine Screen U Marijuana (THC) Screen Drugs of Abuse Note Plasma/Serum Alcohol < 0.01 03/16/21 03/16/21 03/16/21 20:37 Unknown Unknown WBC RBC Hgb Hct MCV MCH MCHC RDW Plt Count Lymph % (Auto) [place] % (Auto) Eos % (Auto) Baso % (Auto) Lymph # (Auto) [place] # (Auto) Eos # (Auto) Baso # (Auto) Seg Neutrophils % Seg Neutrophils # PT 18.1 H INR 1.36 H APTT 34.1 Sodium Potassium Chloride Carbon Dioxide Anion Gap BUN Creatinine Estimated GFR BUN/Creatinine Ratio Glucose Calcium Magnesium Total Bilirubin Direct Bilirubin Indirect Bilirubin AST ALT Alkaline Phosphatase Ammonia Troponin T Total Protein Albumin Albumin/Globulin Ratio Lipase TSH HCG, Qual Urine Color [place] Urine Turbidity Slightly-cloudy Urine pH 6.0 Ur Specific [place] 1.018 Urine Protein 30 mg/dl Urine Glucose (UA) Neg Urine Ketones 20 Urine Blood Neg Urine Nitrite Neg Urine Bilirubin Mod Urine Ictotest Positive Urine Urobilinogen 4.0 Ur Leukocyte Esterase Neg Urine WBC (Auto) 7.0 H Urine RBC (Auto) 1.0 U Epithel Cells (Auto) 4.0 Urine Bacteria (Auto) 4+ Urine Mucus 3+ Urine Opiates Screen Presumptive negative Urine Methadone Screen Presumptive negative Ur Barbiturates Screen Presumptive negative Ur Phencyclidine Scrn Presumptive negative Ur Amphetamines Screen Presumptive negative U Benzodiazepines Scrn Presumptive negative Urine Cocaine Screen Presumptive negative U Marijuana (THC) Screen Presumptive positive Drugs of Abuse Note Disclamer Plasma/Serum Alcohol 03/17/21 03/17/21 04:50 04:50 WBC 5.0 RBC 3.24 L Hgb 11.0 Hct 33.4 MCV 103 H MCH 34 H MCHC 33 RDW 15.6 H Plt Count 75 L Lymph % (Auto) 24.9 [place] % (Auto) 9.1 H Eos % (Auto) 0.2 Baso % (Auto) 0.5 Lymph # (Auto) 1.2 [place] # (Auto) 0.5 Eos # (Auto) 0.0 Baso # (Auto) 0.0 Seg Neutrophils % 65.3 Seg Neutrophils # 3.3 PT INR APTT Sodium 139 Potassium 3.7 Chloride 100.7 Carbon Dioxide 25 Anion Gap 17 BUN < 1 L Creatinine 0.3 L Estimated GFR > 60 BUN/Creatinine Ratio 3 Glucose 100 Calcium 8.1 L Magnesium 1.80 Total Bilirubin Direct Bilirubin Indirect Bilirubin AST ALT Alkaline Phosphatase Ammonia Troponin T Total Protein Albumin Albumin/Globulin Ratio Lipase TSH HCG, Qual Urine Color Urine Turbidity Urine pH Ur Specific [place] Urine Protein Urine Glucose (UA) Urine Ketones Urine Blood Urine Nitrite Urine Bilirubin Urine Ictotest Urine Urobilinogen Ur Leukocyte Esterase Urine WBC (Auto) Urine RBC (Auto) U Epithel Cells (Auto) Urine Bacteria (Auto) Urine Mucus Urine Opiates Screen Urine Methadone Screen Ur Barbiturates Screen Ur Phencyclidine Scrn Ur Amphetamines Screen U Benzodiazepines Scrn Urine Cocaine Screen U Marijuana (THC) Screen Drugs of Abuse Note Plasma/Serum Alcohol - Imaging CT Scan: report reviewed Assessment and Plan 1. Abnormal liver enzymes/jaundice - pattern of elevation in setting of alcohol abuse consistent with alcoholic hepatitis. imaging with signs of hepatomegaly/steatosis. low platelet count so may have portal htn/cirrhosis at this point as well. counseled extensively on alcohol cessation. DF < 32, so would trend liver enzymes and cont supportive care otherwise from gi stand point. check viral hep serologies to rule out other chronic underlying medical disease.
--- NOTE | 2021-03-17 13:28 | Electrocardiograph Report ---
[facility] Test Date: 2021-03-16 Test Time: 18:10:30 Pat Name: ANAI NOWAK Department: Room: A481 1 Gender: F Shaper Machine Hand: VAL : [id number] Requested By: AMAURY HENRY Order Number: [id number] Reading MD: Gigi Holliday Measurements Intervals [place] Rate: 101 P: 59 MO: 129 QRS: 59 QRSD: 89 T: 45 QT: 421 QTc: 547 Interpretive Statements Sinus tachycardia Nonspecific T abnormalities, anterior leads Prolonged QT interval Compared to ECG 01/09/2021 09:23:57 No significant change Electronically Signed On 03-17-2021 13:28:30 EST by Gigi Holliday
--- NOTE | 2021-03-17 16:47 | Progress Note ---
Assessment and Plan -- Acute liver failure Possibly secondary to the alcohol abuse. Consult placed to gastroenterology for evaluation and recommendation. Continue to follow LFT -- Hypokalemia likely due to nausea and vomiting, Continue to replete potassium and follow magnesium level -- Hypomagnesemia Repleted in the ER, repeat level is normal -- Prolonged QT interval Possibly secondary to the electrolyte imbalance. We will replete electrolytes We will monitor EKG. -- Alcohol use disorder Patient counseled on quitting alcohol abuse. We will place on CIWA protocol. -- History of seizure disorder We will resume routine home medications and also placed on seizure precautions. -- DVT prophylaxis Patient placed on subcutaneous heparin. -- Full code status Disposition: Continue to follow electrolytes, replete potassium as needed. Follow LFT. Continue CIWA protocol. Advance diet as tolerated. If patient a ble to tolerate diet, and electrolyte along with LFT stable then possible discharge tomorrow. Continue inpatient care. Subjective Date of service: 03/17/21 Interval history: Patient seen and examined. Medical records and medication list reviewed. No acute event overnight noted by the RN. Patient denies any chest pain or difficulty breathing. No further active seizure episode reported Discussed plan of care at bedside with patient. Objective - Exam Narrative Exam: GENERAL: Lean and thin malnourished female lying on bed appeared to be in no discomfort. HEENT: Normocephalic. Atraumatic. No conjunctival congestion or icterus. Patient has moist mucous membranes. NECK: Supple. Trachea midline. CHEST/LUNGS: Clear to auscultated bilaterally, breathing nonlabored. No wheezes crackles or rhonchi. HEART/CARDIOVASCULAR: Regular in rate and rhythm. S1 and S2 positive. ABDOMEN: Abdomen is soft, nontender. Patient has normal bowel sounds. SKIN: There is no rash. Warm and dry. NEURO: No focal motor deficit. Follows command. MUSCULOSKELETAL: No joint effusion or tenderness. EXTRIMITY: No edema, no cyanosis or clubbing. PSYCH: Cooperative. - Constitutional Vitals: Vital Signs - 12hr 03/17/21 03/17/21 03/17/21 07:52 08:58 15:13 Temperature 98.3 F 98.0 F Pulse Rate 90 90 91 H Respiratory 16 16 Rate Blood Pressure 96/66 97/67 O2 Sat by Pulse 97 98 Oximetry - Labs CBC & Chem 7: 03/18/21 05:49 03/18/21 05:49 Labs: Abnormal lab results 03/16/21 03/16/21 03/16/21 Range/Units 19:04 19:04 20:37 RBC 3.61 L (3.65-5.03) M/mm3 MCV 103 H (79-97) fl MCH 35 H (28-32) pg RDW (13.2-15.2) % Plt Count 95 L (140-440) K/mm3 Lymph % (Auto) 13.0 L (13.4-35.0) % [place] % (Auto) 9.2 H (0.0-7.3) % Lymph # (Auto) 0.9 L (1.2-5.4) K/mm3 Seg Neutrophils % 77.7 H (40.0-70.0) % PT 18.1 H (12.2-14.9) Sec. INR 1.36 H (0.87-1.13) Sodium 135 L (137-145) mmol/L Potassium 3.1 L (3.6-5.0) mmol/L Chloride 91.2 L (98-107) mmol/L Carbon Dioxide 21 L (22-30) mmol/L BUN 2 L (7-17) mg/dL Creatinine 0.3 L (0.6-1.2) mg/dL Glucose 111 H (65-100) mg/dL Calcium (8.4-10.2) mg/dL Magnesium 1.40 L (1.7-2.3) mg/dL Total Bilirubin 6.60 H (0.1-1.2) mg/dL Direct Bilirubin 4.4 H (0-0.2) mg/dL AST 200 H (5-40) units/L Alkaline Phosphatase 210 H (35-129) units/L Albumin 3.5 L (3.9-5) g/dL Lipase 5 L (13-60) units/L Urine WBC (Auto) (0.0-6.0) /HPF 03/16/21 03/17/21 03/17/21 Range/Units Unknown 04:50 04:50 RBC 3.24 L (3.65-5.03) M/mm3 MCV 103 H (79-97) fl MCH 34 H (28-32) pg RDW 15.6 H (13.2-15.2) % Plt Count 75 L (140-440) K/mm3 Lymph % (Auto) (13.4-35.0) % [place] % (Auto) 9.1 H (0.0-7.3) % Lymph # (Auto) (1.2-5.4) K/mm3 Seg Neutrophils % (40.0-70.0) % PT (12.2-14.9) Sec. INR (0.87-1.13) Sodium (137-145) mmol/L Potassium (3.6-5.0) mmol/L Chloride (98-107) mmol/L Carbon Dioxide (22-30) mmol/L BUN < 1 L (7-17) mg/dL Creatinine 0.3 L (0.6-1.2) mg/dL Glucose (65-100) mg/dL Calcium 8.1 L (8.4-10.2) mg/dL Magnesium (1.7-2.3) mg/dL Total Bilirubin (0.1-1.2) mg/dL Direct Bilirubin (0-0.2) mg/dL AST (5-40) units/L Alkaline Phosphatase (35-129) units/L Albumin (3.9-5) g/dL Lipase (13-60) units/L Urine WBC (Auto) 7.0 H (0.0-6.0) /HPF HEART Score - HEART Score Troponin: Troponin T < 0.010 ng/mL (0.00-0.029) 03/16/21 19:04
[2021-03-18 07:10] LABS: Basophils % (Auto) 0.3 % (0.0-1.8); Eosinophils % (Auto) 0.6 % (0.0-4.3); Hematocrit 33.1 % (30.3-42.9); Hemoglobin 10.9 gm/dl (10.1-14.3); Lymphocytes # (Auto) 1.2 K/mm3 (1.2-5.4); Lymphocytes % (Auto) 27.7 % (13.4-35.0); Mean Corpuscular HGB Conc 33 % (30-34); Mean Corpuscular Volume 104 fl (79-97); Monocytes # (Auto) 0.4 K/mm3 (0.0-0.8); Monocytes % (Auto) 9.6 % (0.0-7.3); Red Blood Count 3.18 M/mm3 (3.65-5.03); Red Cell Distribution Width 15.2 % (13.2-15.2)
[2021-03-18 07:24] LABS: Alanine Aminotransferase 36 units/L (7-56); Calcium 8.2 mg/dL (8.4-10.2); Hemolysis Index 0; Platelet Count 67 K/mm3 (140-440)
[2021-03-18 07:25] LABS: BUN/Creatinine Ratio 5; Blood Urea Nitrogen < 1 mg/dL (7-17)
[2021-03-18] MEDS: SODIUM CHLORIDE 0.9% 1000 ML 1,000 ML IV SCH (07:28)
[2021-03-18] MEDS: HEPARIN 5,000 UNIT/1 ML VIAL SUB-Q SCH ×2 (07:29→16:02)
[2021-03-18] MEDS: MORPHINE 2 MG/1 ML INJ IV PRN (08:12)
[2021-03-18] MEDS: ONDANSETRON 4 MG/2 ML INJ IV PRN (08:12)
[2021-03-18] MEDS: levETIRAcetam 500 MG TAB PO SCH (09:06)
[2021-03-18] MEDS: NITROFURANTOIN MONOHYD/M-CRYST 100 MG CAP PO SCH (09:06)
[2021-03-18] MEDS ORDERED: POTASSIUM CHLORIDE ER 20 MEQ TAB PO ONE (10:00)
--- NOTE | 2021-03-18 10:29 | Discharge Summary ---
Providers - Providers Date of Admission: 03/16/21 21:46 Date of discharge: 03/18/21 Attending physician: ZAHRAA WHITAKER 03/16/21 22:33 Consult to Physician [CONS] Routine Comment: Consulting Provider: CHARU WALSH Physician Instructions: Reason For Exam: Liver failure,h/o alcohol abuse Primary care physician: MAINTENANCE MECHANIC TECHNICIAN Hospitalization Condition: Stable Hospital course: 41-year-old -[place] female with known history of seizure disorder on Keppra and Depakote presents to the emergency room via EMS today complaining of anxiety and multiple episodes of nausea and vomiting. She states that she drinks about a pint of alcohol almost on a daily basis. She denies any other illicit drug use. Work-up in the emergency room showed hypokalemia of 3.1, elevated AST of 200, magnesium of 1.4, UDS was positive for marijuana. EKG shows some prolonged QT. Abdominal ultrasound shows hepatomegaly and increased echogenicity in the liver likely representing fatty infiltration. Her alcohol level was less than 0.01 Patient was admitted to the hospital, placed on IV fluid hydration, repleted electrolytes, LFT followed GI was consulted, abdominal pelvis CT and abdominal ultrasound was obtained which showed signs of hepatomegaly with hepatic steatosis Patient symptoms improved with medical management, she was tolerating diet, electrolytes were improved and repleted accordingly Patient was then discharged home in stable condition with outpatient follow-up She was counseled to be abstinent from alcohol Disposition: 01 HOME / SELF CARE / HOMELESS Final Discharge Diagnosis (Prints w/discharge instructions): --Acute alcoholic hepatitis. --Hypokalemia, hypomagnesemia. --Prolonged QT interval due to electrolyte imbalance. --Alcohol abuse disorder. --Seizure disorder. --Moderate protein calorie malnutrition, likely due to alcohol abuse Time spent for discharge: 34 minutes Core Measure Documentation - Palliative Care Palliative Care/ Comfort Measures: Not Applicable - Core Measures Any of the following diagnoses?: none Exam - Physical Exam Narrative exam: GENERAL: Lean and thin malnourished female lying on bed appeared to be in no discomfort. HEENT: Normocephalic. Atraumatic. No conjunctival congestion or icterus. Patient has moist mucous membranes. NECK: Supple. Trachea midline. CHEST/LUNGS: Clear to auscultated bilaterally, breathing nonlabored. No wheezes crackles or rhonchi. HEART/CARDIOVASCULAR: Regular in rate and rhythm. S1 and S2 positive. ABDOMEN: Abdomen is soft, nontender. Patient has normal bowel sounds. SKIN: There is no rash. Warm and dry. NEURO: No focal motor deficit. Follows command. MUSCULOSKELETAL: No joint effusion or tenderness. EXTRIMITY: No edema, no cyanosis or clubbing. PSYCH: Cooperative. - Constitutional Vitals: Temp Pulse Resp BP Pulse Ox 97.0 F L 87 18 102/71 98 03/18/21 07:28 03/18/21 07:28 03/18/21 07:28 03/18/21 07:28 03/18/21 08:27 Plan Activity: advance as tolerated Weight Bearing Status: Weight Bear as Tolerated Diet: low fat Additional Instructions: abstinance from alcohol. Repeat LFT in one week. Avoid tylenol and NSAID Follow up with: PRIMARY CARE, [Primary Care Provider] - 3-5 Days FARHEEN STEINER MD [Staff Physician] - 7 Days KAYY FARRAR MD [Staff Physician] - 7 Days Prescriptions: Magnesium 200 mg PO BID #7 tablet HYDROcodone/APAP 5-325 [[place] 5/325] 1 each PO Q6HR PRN #7 tablet PRN Reason: Pain
[2021-03-18] MEDS ORDERED: DIVALPROEX DR 125 MG TAB PO SCH (11:00)
[2021-03-18] MEDS ORDERED: MAGNESIUM SULFATE 3 GM in SODIUM CHLORIDE 0.9% 100 ML IV ONE (13:00)
[2021-03-18 14:59] VITALS: BP 103/66
[2021-03-18] MEDS ORDERED: POTASSIUM CHLORIDE ER 20 MEQ TAB PO SCH (22:00)
== END 2021-03-18 17:20 | disposition home or self-care (01) | DRG 432 ==
LOC: ED 15:57 → 4A 21:46
PROVIDERS: ADMIT Internal Medicine Geriatric Medicine; ATTEND Internal Medicine
DX: K70.10 Alcoholic hepatitis without ascites (principal); K72.00 Acute and subacute hepatic failure without coma; E44.0 Moderate protein-calorie malnutrition; F41.9 Anxiety disorder, unspecified; R94.31 Abnormal electrocardiogram [ECG] [EKG]; E87.5 Hyperkalemia; E83.42 Hypomagnesemia; F10.10 Alcohol abuse, uncomplicated; G40.909 Epilepsy, unspecified, not intractable, without status epilepticus; Z20.822 Contact with and (suspected) exposure to COVID-19
CPT/HCPCS: 36415; 74177; 76705; 80048; 80053; 80076; 80307; 80320; 81001; 82140; 83690; 83735; 84443; 84484; 84703; 85025; 85610; 85730; 87040; 87076; 87086; 87186; 93005; 99285; G0378; Q0162; G0480; J1644; J2060; J2270; J2405; J3475; J3480; J7030; Q9967

== ENCOUNTER 2021-04-10 05:52 | Inpatient (IN) | payer SELFPAY ==
[2021-04-10] MEDS ORDERED: METOCLOPRAMIDE 10 MG/2 ML INJ IV ONE (06:39)
[2021-04-10] MEDS ORDERED: SODIUM CHLORIDE 0.9% 1000 ML 1,000 ML IV ONE (06:39)
[2021-04-10] MEDS ORDERED: MORPHINE 4 MG/1 ML INJ IV ONE (06:39)
--- NOTE | 2021-04-10 06:42 | Emergency Department Report ---
ED Abdominal Pain HPI - General Chief Complaint: Abdominal Pain Stated Complaint: ABDOMINAL PAIN/DISTENTION Time Seen by Provider: 04/10/21 06:28 Source: EMS Mode of arrival: Ambulatory Limitations: No Limitations - History of Present Illness Initial Comments: Patient presents with a 3-day history of abdominal pain. She describes pain in the upper abdomen. Pain is sharp and stabbing. She has had some cramping associate with this as well. It does not radiate or migrate. The pain is constant. It does not wax and wane. It is worse with movement, palpation, and anytime she eats or drinks. She has had pain like this before. Several years ago when she was in [place] she was diagnosed with pancreatitis. That was due to alcohol. She has not had a drink since January. Regardless, she is here for pain control. Last menstrual cycle was 1 month ago. That was a normal cycle for her. She does not believe she is . Severity scale (0 -10): 3 - Related Data Home Medications Medication Instructions Recorded Confirmed Last Taken Divalproex Dr [Marcie Mccormick] 125 mg PO BID 03/17/21 03/17/21 03/16/21 Previous Rx's Medication Instructions Recorded Last Taken Type levETIRAcetam [Keppra TAB] 500 mg PO BID #60 tablet 11/06/19 03/16/21 Rx Ondansetron [Zofran ODT TAB] 4 mg PO Q8HR PRN #14 tab.rapdis 01/09/21 03/16/21 Rx Potassium Chloride [K-Dur] 20 meq PO BID #4 tab 01/09/21 03/16/21 Rx HYDROcodone/APAP 5-325 [[place] 1 each PO Q6HR PRN #7 tablet 03/18/21 Unknown Rx 5/325] Magnesium 200 mg PO BID #7 tablet 03/18/21 Unknown Rx Allergies Allergy/AdvReac Type Severity Reaction Status Date / Time Penicillins AdvReac Itching Verified 04/10/21 05:54 ED Review of Systems ROS: Stated complaint: ABDOMINAL PAIN/DISTENTION Other details as noted in HPI Comment: All other systems reviewed and negative Constitutional: denies: fever Eyes: denies: eye pain ENT: denies: throat pain Respiratory: denies: cough Cardiovascular: denies: chest pain Endocrine: denies: unexplained weight loss Gastrointestinal: as per HPI Genitourinary: denies: dysuria Musculoskeletal: denies: back pain Skin: denies: rash Neurological: denies: headache Hematological/Lymphatic: denies: easy bruising ED Past Medical Hx - Past Medical History Hx Congestive Heart Failure: No Hx Diabetes: No Hx Seizures: Yes Hx Asthma: No Hx COPD: No Additional medical history: anxiety, pancreatitis, prior alcohol abuse - Family History Family history: no significant - Social History Smoking Status: Never Smoker Substance Use Type: Alcohol (1 pint liquor/day) - Medications Home Medications: Home Medications Medication Instructions Recorded Confirmed Last Taken Type levETIRAcetam [Keppra TAB] 500 mg PO BID #60 tablet 11/06/19 03/17/21 03/16/21 Rx Ondansetron [Zofran ODT TAB] 4 mg PO Q8HR PRN #14 tab.rapdis 01/09/21 03/17/21 03/16/21 Rx Potassium Chloride [K-Dur] 20 meq PO BID #4 tab 01/09/21 03/17/21 03/16/[address] [Depakote Dr] 125 mg PO BID 03/17/21 03/17/21 03/16/21 History HYDROcodone/APAP 5-325 [[place] 1 each PO Q6HR PRN #7 tablet 03/18/21 Unknown Rx 5/325] Magnesium 200 mg PO BID #7 tablet 03/18/21 Unknown Rx ED Physical Exam - General Limitations: No Limitations, Other (Pulse ox noted and normal) General appearance: alert, in no apparent distress, other (Uncomfortable) - Head Head exam: Present: atraumatic, normocephalic - Eye Eye exam: Present: normal appearance, EOMI, scleral icterus - ENT ENT exam: Present: normal orophraynx, normal external ear exam - Neck Neck exam: Present: normal inspection. Absent: meningismus - Respiratory Respiratory exam: Present: normal lung sounds bilaterally. Absent: respiratory distress - Cardiovascular Cardiovascular Exam: Present: normal rhythm, tachycardia - GI/Abdominal GI/Abdominal exam: Present: soft, distended (Tympanitic), tenderness (Diffuse) - Extremities Exam Extremities exam: Present: normal capillary refill. Absent: pedal edema - Back Exam Back exam: Absent: CVA tenderness (R), CVA tenderness (L) - Neurological Exam Neurological exam: Present: alert, oriented X3, CN II-XII intact. Absent: motor sensory deficit - Psychiatric Psychiatric exam: Present: normal affect, normal mood - Skin Skin exam: Present: warm, dry ED Course Vital Signs 04/10/21 04/10/21 05:54 06:09 Temperature 98.9 F Pulse Rate 124 H 106 H Respiratory 19 17 Rate Blood Pressure 120/68 112/68 [Left] O2 Sat by Pulse 94 94 Oximetry - Reevaluation(s) Reevaluation #1: 04/10/21 06:41 IV, labs, and CT were ordered. Old records noted. Reevaluation #2: 04/10/21 08:50 Labs have been reviewed. CT scan was noted. Patient was informed. Hospitalist was paged who agrees to admit. Antibiotics and blood cultures have been added on. Patient may benefit from paracentesis. ED Medical Decision Making - Lab Data Result diagrams: 04/10/21 06:45 04/10/21 06:45 Rhythm strip: Sinus tachycardia without ectopy per monitor observe 10 seconds. - Radiology Data Radiology results: report reviewed - Medical Decision Making Patient presents with abdominal pain and distention. She was confirmed for pancreatitis. She does not have evidence of pancreatitis. What she seems to have is new onset ascites likely related to alcoholic liver disease. She potentially could have cirrhosis. She is jaundiced with scleral icterus. Patient has bilateral pleural effusions with an additional infiltrative process. Whether this infiltrative process is coronavirus or pneumonia is not known. She does have leukocytosis and tachycardia which would be concerning for SIRS criteria. Given the fact that she has this infiltrative process, she was treated empirically for community-acquired pneumonia. She may benefit from paracentesis. She is not thrombocytopenic. There is no profound electrolyte derangement. Patient will be admitted to the hospitalist service for ongoing treatment and further management. Critical Care Time: No Critical care attestation.: If time is entered above; I have spent that time in minutes in the direct care of this critically ill patient, excluding procedure time. ED Disposition Clinical Impression: Generalized abdominal pain, Ascites, Alcoholic liver disease, Jaundice, Pleural effusion Anemia Qualifiers: Anemia type: unspecified type Qualified Code(s): D64.9 - Anemia, unspecified Community acquired pneumonia Qualifiers: Laterality: right Lung location: lower lobe of lung Qualified Code(s): J18.9 - Pneumonia, unspecified organism Left lower lobe pneumonia Qualifiers: Pneumonia type: due to unspecified organism Qualified Code(s): J18.9 - Pne umonia, unspecified organism Disposition: 09 ADMITTED INPATIENT Is pt being admited?: Yes Condition: Stable Instructions: Abdominal Pain (ED), Bacterial Pneumonia (ED)
[2021-04-10 07:03] LABS: Hematocrit 28.5 % (30.3-42.9); Hemoglobin 9.6 gm/dl (10.1-14.3); Mean Corpuscular HGB Conc 34 % (30-34); Mean Corpuscular Volume 101 fl (79-97); Platelet Count 180 K/mm3 (140-440); Red Blood Count 2.83 M/mm3 (3.65-5.03); Red Cell Distribution Width 15.7 % (13.2-15.2)
[2021-04-10 07:25] LABS: Alanine Aminotransferase 20 units/L (7-56); Albumin 1.8 g/dL (3.9-5); Blood Urea Nitrogen 16 mg/dL (7-17); Hemolysis Index 3
[2021-04-10 07:30] LABS: BUN/Creatinine Ratio 23
[2021-04-10] MEDS ORDERED: LACTATED RINGERS 1,000 ML IV ONE (08:02)
--- NOTE | 2021-04-10 08:28 | Cat Scan Report ---
CT abdomen pelvis w con INDICATION / CLINICAL INFORMATION: distention/tympanny, eval for sbo. TECHNIQUE: Axial CT images were obtained through the abdomen and pelvis after IV contrast. All CT sc ans at this location are performed using CT dose reduction for ALARA by means of automated exposure c ontrol. COMPARISON: CT dated 03/14/2021. FINDINGS: LOWER CHEST: Trace bibasilar pleural effusions. There are prominent bibasilar airspace consolidations , slightly more pronounced on the right. LIVER: There is hepatomegaly with diffuse hepatic steatosis. GALLBLADDER/BILIARY TREE: Gallbladder is partially contracted. The wall of the gallbladder appears th ickened with mucosal enhancement. No biliary dilatation. PANCREAS: There is generalized atrophy of the pancreas with diffuse parenchymal calcifications, lupe tible sequela of prior chronic pancreatitis. No evidence of acute pancreatitis. SPLEEN: No significant abnormality ADRENALS: No significant abnormality KIDNEYS / URETER: No significant abnormality URINARY BLADDER: Bladder is partially decompressed, though grossly unremarkable. REPRODUCTIVE ORGANS: No significant abnormality STOMACH / BOWEL: Small bowel and colon demonstrate no evidence of mechanical obstruction or inflammat ion. The appendix is not discretely seen. LYMPH NODES: No significant adenopathy. VASCULATURE: No significant abnormality. OTHER: Small-moderate volume free fluid in the abdomen. No free air. SKELETAL SYSTEM: No acute osseous findings. IMPRESSION: 1. Trace bibasilar pleural effusions with prominent bibasilar airspace consolidations, concerning for pneumonia. 2. Enlarged, fatty liver with nonspecific small-moderate volume ascites. Gallbladder is partially con tracted. The wall of the gallbladder appears thickened with mucosal enhancement. These findings are f avored to be related to volume overload/ascites. If there is concern for cholecystitis, consider furt her evaluation with HIDA scan and/or right upper quadrant ultrasound. 3. No other acute abnormality. No evidence of bowel obstruction or localized bowel inflammation. 4. Other stable chronic and incidental findings as above. Signer Name: French Villavicencio MD Signed: 04/10/2021 8:24 AM Workstation Name: [id number]
[2021-04-10] MEDS ORDERED: AZITHROMYCIN/NS 500 MG/250 ML 500 MG/250 ML BAG IV ONE ×2 (08:37→11:00)
[2021-04-10] MEDS ORDERED: cefTRIAXone/NS 2 GM/100 ML 2 GM/100 ML BAG IV ONE (08:37)
--- NOTE | 2021-04-10 09:49 | History and Physical Report ---
History of Present Illness Chief complaint: abd pain History of present illness: HPI: 41-year-old female with past medical history of alcoholism and seizures presenting to our facility with 3-day complaint of abdominal pain and distention. Patient describes pain localized in the upper abdomen as a sharp and stabbing sensation. Patient states that she has had some cramping associated with the symptoms and some difficulty with her bowel habits. This morning she noticed yellowing of her eyes and slight change in her skin tone. Patient states the pain is constant and is worsened with movement and palpation. Patient has had a history of pancreatitis in the past that was attributed to alcohol. She states that she has not had a drink since just prior to . She is also been hospitalized for seizures back in January which were at the time attributed to alcoholism. She does not believe she is and states that her last menstrual cycle was approximately 1 month ago. Patient states that she has never had evaluation by a GI doctor with an endoscopy or colonoscopy. She also states she has never been told she has had severe liver dysfunction. She states she is trying to quit alcohol and has been abstinent since February. ED Course: PMHx: alcohol abuse, seizures, prior hospitalization for pancreatitis PSHx: tubal ligation FHx: reviewed noncontributory SHx: Tobacco use-denies ETOH Use-heavy abuse prior to january 2021 per patient, last drink Recreational Drug Use-denies LIves with suki recently moved from [place] Past History Past Medical History: seizures, other (alcohol abuse, pancreatitis) Past Surgical History: Other (tubal ligation) Social history: alcohol abuse Family history: no significant family history Medications and Allergies Allergies Allergy/AdvReac Type Severity Reaction Status Date / Time Penicillins AdvReac Itching Verified 04/10/21 05:54 Home Medications Medication Instructions Recorded Confirmed Last Taken Type levETIRAcetam [Keppra TAB] 500 mg PO BID #60 tablet 11/06/19 03/17/21 03/16/21 Rx Ondansetron [Zofran ODT TAB] 4 mg PO Q8HR PRN #14 tab.rapdis 01/09/21 03/17/21 03/16/21 Rx Potassium Chloride [K-Dur] 20 meq PO BID #4 tab 01/09/21 03/17/21 03/16/[address] [Depfarhad Mccormick] 125 mg PO BID 03/17/21 03/17/21 03/16/21 History HYDROcodone/APAP 5-325 [[place] 1 each PO Q6HR PRN #7 tablet 03/18/21 Unknown Rx 5/325] Magnesium 200 mg PO BID #7 tablet 03/18/21 Unknown Rx Active Meds: Active Medications Azithromycin (Zithromax/Ns) 500 mg in 250 mls @ 250 mls/hr IV ONCE ONE; Protocol Stop: 04/10/21 09:36 Review of Systems All systems: negative Exam - Physical Exam Narrative exam: Physical Exam: VITAL SIGNS: Reviewed. GENERAL: The patient appears normally developed, Vital signs as documented. HEAD: No signs of head trauma. EYES: Scleral icterus. Pupils are equal. Extraocular motions intact. EARS: Hearing grossly intact. MOUTH: Oropharynx is normal. NECK: No adenopathy, no JVD. CHEST: Chest with clear breath sounds bilaterally. No wheezes, rales, or rhonchi. CARDIAC: Regular rate and rhythm. S1 and S2, without murmurs, gallops, or rubs. VASCULAR: No Edema. Peripheral pulses normal and equal in all extremities. ABDOMEN: distended, tender to palp. MUSCULOSKELETAL: Good range of motion of all major joints. Extremities without clubbing, cyanosis or edema. NEUROLOGIC EXAM: Alert and oriented x 4. no focal sensory or strength deficits. PSYCHIATRIC: Mood normal. SKIN: jaundice detail exam as documented in skin assessment - Constitutional Vitals: Temp Pulse Resp BP Pulse Ox 98.9 F 106 H 17 112/68 94 04/10/21 05:54 04/10/21 06:09 04/10/21 06:09 04/10/21 06:09 04/10/21 06:09 Results - Labs CBC & Chem 7: 04/10/21 06:45 04/10/21 06:45 Labs: Laboratory Last Values WBC 22.3 K/mm3 (4.5-11.0) H 04/10/21 06:45 RBC 2.83 M/mm3 (3.65-5.03) L 04/10/21 06:45 Hgb 9.6 gm/dl (10.1-14.3) L 04/10/21 06:45 Hct 28.5 % (30.3-42.9) L 04/10/21 06:45 MCV 101 fl (79-97) H 04/10/21 06:45 MCH 34 pg (28-32) H 04/10/21 06:45 MCHC 34 % (30-34) 04/10/21 06:45 RDW 15.7 % (13.2-15.2) H 04/10/21 06:45 Plt Count 180 K/mm3 (140-440) 04/10/21 06:45 Sodium 138 mmol/L (137-145) 04/10/21 06:45 Potassium 3.6 mmol/L (3.6-5.0) 04/10/21 06:45 Chloride 101.9 mmol/L (98-107) 04/10/21 06:45 Carbon Dioxide 20 mmol/L (22-30) L 04/10/21 06:45 Anion Gap 20 mmol/L 04/10/21 06:45 BUN 16 mg/dL (7-17) 04/10/21 06:45 Creatinine 0.7 mg/dL (0.6-1.2) 04/10/21 06:45 Estimated GFR > 60 ml/min 04/10/21 06:45 BUN/Creatinine Ratio 23 % 04/10/21 06:45 Glucose 75 mg/dL (65-100) 04/10/21 06:45 Calcium 8.0 mg/dL (8.4-10.2) L 04/10/21 06:45 Magnesium 2.00 mg/dL (1.7-2.3) 04/10/21 06:45 Total Bilirubin 15.90 mg/dL (0.1-1.2) H 04/10/21 06:45 AST 179 units/L (5-40) H 04/10/21 06:45 ALT 20 units/L (7-56) 04/10/21 06:45 Alkaline Phosphatase 147 units/L (35-129) H 04/10/21 06:45 Total Protein 5.9 g/dL (6.3-8.2) L 04/10/21 06:45 Albumin 1.8 g/dL (3.9-5) L 04/10/21 06:45 Albumin/Globulin Ratio 0.4 % 04/10/21 06:45 Lipase 4 units/L (13-60) L 04/10/21 06:45 HCG, Qual Negative (Negative) 04/10/21 06:45 Valproic Acid 22.7 ug/mL (50-100) L 04/10/21 07:26 Assessment and Plan Assessment and plan: #Acute liver failure - icterus, jaundiced, ascites - AST:179, ALT: 20, Bili: 15.9, plt: 180 - coagulation profile ordered, serum ammonia, APAP level ordered - CTAP: fatty liver infiltrates, ascites. Please refer to official radiology report. - hepatitis panel ordered - Abd US with doppler of portal/hepatic vein flow ordered - consultation placed to gastroenterology for further guidance. #Ascites - doubt SBP, no fever, VSS. Patient does have leukocytosis, high LA. Will cover with rocephin at this time. - CT guided paracentesis ordered. likely to be completed on sunday. - ascitic fluid sample should be sent for albumin measurement and culture - initiate spironalactone. will hold off on lasix due to BP in 110's systolic. - NPO at midnight # Severe Sepsis POA - abd pain, la: 3.2,WBC: 22K, source: possibly abd. - rocephin IV ordered, albumin 25 gm admin. - IV fluids - Bcx, ucx, ascitic fluid cx. - covid pcr ordered. Patient unvaccinated. #Alcoholic hepatitis with Ascites - likely etiology of hepatitis. - management as above #Fatty liver disease - noted findings on CTAP #History of alcoholic pancreatitis - lipase 4. 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 #Person under investigation for COVID 19 #Advance care planning Disease education conducted, care plan discussed, diagnoses discussed, prognosis discussed, patient is full code, patient acknowledges understanding and agree with care plan, +30 minutes. Full code Lovenox 40 mg daily Dispo: Admit to medical floor. Needs CT guided paracentesis. GI consultation placed. Pending remainder of hepatic workup.Check for coronavirus, PCR ordered.
[2021-04-10] MEDS ORDERED: ACETAMINOPHEN 325 MG TAB PO PRN (12:00)
[2021-04-10] MEDS ORDERED: MORPHINE 2 MG/1 ML INJ IV PRN (12:00)
[2021-04-10 12:13] LABS: Hepatitis B Surface Antigen Non-Reactive (Negative); Hepatitis C Virus Antibody Non-Reactive (NonReactive)
[2021-04-10 12:45] LABS: Band Neutrophils # (Manual) 2.2 K/mm3; Eosinophils % (Manual) 0 % (0.0-4.3); Total Cells Counted 100
[2021-04-10 12:46] LABS: Hypochromasia 1+; Macrocytosis 1+; Platelet Clumps Rare; Platelet Estimate Consistent w Auto
--- NOTE | 2021-04-10 13:16 | Ultrasound Report ---
ULTRASOUND ABDOMEN, COMPLETE, 04/10/2021 INDICATION: Abdominal pain. Hepatitis. COMPARISON: CT of the abdomen and pelvis, 04/10/2021 FINDINGS: Pancreas: Visualized portions of the pancreas demonstrate no focal abnormality. Abdominal Aorta: Visualized portions of the abdominal aorta appear normal in caliber. IVC: Visualized portions of the inferior vena cava appear normal in caliber. Liver: The liver is enlarged measuring approximately 21 cm in transverse dimension by [address] craniocaudal dimension, as demonstrated on the CT of the abdomen and pelvis performed earlier toda y. The liver appears diffusely echogenic. Gallbladder: Evaluation of the gallbladder fossa demonstrates that the gallbladder is contracted and likely diffusely edematous. Bile ducts: Common Bile Duct is normal in caliber measuring less than 2 mm Right Kidney: The right kidney appears normal. Left Kidney: The left kidney appears normal. Spleen: The spleen is upper limits of normal in size measuring approximately 13 cm. Free fluid: There is a moderate amount of free fluid within the right upper quadrant. Additional Findings: None. IMPRESSION: 1. Enlarged echogenic liver representing hepatomegaly with probable hepatic steatosis. 2. The gallbladder is contracted and diffusely edematous which limits evaluation. Differential consid erations include edematous changes related to ascites or cholecystitis. 3. Spleen is upper limits of normal in size. Signer Name: Hetal Villatoro MD Signed: 04/10/2021 1:11 PM Workstation Name: [id number]
[2021-04-10] MEDS: DIVALPROEX DR 125 MG TAB PO SCH ×2 (14:20→22:19)
[2021-04-10] MEDS: ENOXAPARIN 40 MG/0.4 ML INJ SUB-Q SCH (14:20)
[2021-04-10] MEDS: levETIRAcetam 500 MG TAB PO SCH ×2 (14:20→22:19)
[2021-04-10] MEDS ORDERED: ALBUMIN HUMAN 25% (25 GM/100 ML) INJ IV ONE (15:04)
[2021-04-10] MEDS: SPIRONOLACTONE 25 MG TAB PO SCH (15:22)
[2021-04-10] MEDS ORDERED: LORazepam 2 MG/ML VIAL IV PRN ×2 (16:00)
[2021-04-11] MEDS ORDERED: SODIUM CHLORIDE 0.9% 500 ML 500 ML IV ONE (00:22)
[2021-04-11 05:45] LABS: Basophils # (Auto) 0.1 K/mm3 (0.0-0.1); Basophils % (Auto) 0.4 % (0.0-1.8); Eosinophils % (Auto) 0.2 % (0.0-4.3); Hematocrit 30.4 % (30.3-42.9); Hemoglobin 10.1 gm/dl (10.1-14.3); Lymphocytes # (Auto) 1.9 K/mm3 (1.2-5.4); Lymphocytes % (Auto) 10.5 % (13.4-35.0); Mean Corpuscular HGB Conc 33 % (30-34); Mean Corpuscular Volume 101 fl (79-97); Monocytes # (Auto) 2.4 K/mm3 (0.0-0.8); Monocytes % (Auto) 13.1 % (0.0-7.3); Platelet Count 180 K/mm3 (140-440); Red Cell Distribution Width 16.1 % (13.2-15.2)
[2021-04-11 05:55] LABS: INR 2.68 (0.87-1.13)
[2021-04-11 05:56] LABS: Partial Thromboplastin Time 57.9 Sec. (24.2-36.6)
[2021-04-11 06:12] LABS: Alanine Aminotransferase 19 units/L (7-56); Albumin 1.9 g/dL (3.9-5); Blood Urea Nitrogen 17 mg/dL (7-17); Calcium 7.8 mg/dL (8.4-10.2); Hemolysis Index 0
[2021-04-11 06:21] LABS: BUN/Creatinine Ratio 34
--- NOTE | 2021-04-11 09:52 | Progress Note ---
Assessment and Plan Assessment and plan: #Acute liver failure - icterus, jaundiced, ascites - AST:179, ALT: 20, Bili: 15.9, plt: 180 - coagulation profile ordered, serum ammonia, APAP level ordered - CTAP: fatty liver infiltrates, ascites. Please refer to official radiology report. - hepatitis panel ordered - Abd US with doppler of portal/hepatic vein flow ordered - consultation placed to gastroenterology for further guidance. #Ascites - doubt SBP, no fever, VSS. Patient does have leukocytosis, high LA. Will cover with rocephin at this time. Ultrasound guided paracentesis . Peritoneal fluid analysis - ascitic fluid sample should be sent for albumin measurement and culture - initiate spironalactone. will hold off on lasix due to BP in 110's systolic. - NPO at midnight # Severe Sepsis POA - abd pain, la: 3.2,WBC: 22K, source: possibly abd. - rocephin IV ordered, albumin 25 gm admin. - IV fluids - Bcx, ucx, ascitic fluid cx. - covid pcr ordered. Patient unvaccinated. #Alcoholic hepatitis with Ascites - likely etiology of hepatitis. - management as above #Fatty liver disease - noted findings on CTAP #History of alcoholic pancreatitis - lipase 4. 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 #Person under investigation for COVID 19 #Advance care planning Disease education conducted, care plan discussed, diagnoses discussed, prognosis discussed, patient is full code, patient acknowledges understanding and agree with care plan, +30 minutes. Full code Lovenox 40 mg daily 04/11/2021; order changed to ultrasound-guided abdominal paracentesis, fluid analysis Closely monitor, continue current management Plan of care reviewed with the patient and her nurse History Interval history: I have seen and examined the patient at the bedside patient's chart and medications reviewed Scheduled for abdominal paracentesis today Patient chronically ill looking cachectic Hospitalist Physical - Constitutional Vitals: Temp Pulse Resp BP Pulse Ox 97.9 F 111 H 16 105/64 100 04/11/21 08:12 04/11/21 08:12 04/11/21 08:12 04/11/21 08:12 04/11/21 08:18 General appearance: Present: no acute distress, cachectic, disheveled - EENT Eyes: Present: PERRL, EOM intact - Neck Neck: Present: supple, normal ROM - Respiratory Respiratory effort: normal Respiratory: bilateral: diminished, negative: rales, rhonchi, wheezing - Cardiovascular Rhythm: regular Heart Sounds: Present: S1 & S2 - Extremities Extremities: no ischemia, No edema Peripheral Pulses: within normal limits - Abdominal General gastrointestinal: soft, non-tender, non-distended, normal bowel sounds - Integumentary Integumentary: Present: clear, warm - Psychiatric Psychiatric: appropriate mood/affect, cooperative - Neurologic Neurologic: CNII-XII intact, moves all extremities Results - Labs CBC & Chem 7: 04/11/21 05:16 04/11/21 05:16 Labs: Laboratory Last Values WBC 18.0 K/mm3 (4.5-11.0) H 04/11/21 05:16 RBC 3.00 M/mm3 (3.65-5.03) L 04/11/21 05:16 Hgb 10.1 gm/dl (10.1-14.3) 04/11/21 05:16 Hct 30.4 % (30.3-42.9) 04/11/21 05:16 MCV 101 fl (79-97) H 04/11/21 05:16 MCH 34 pg (28-32) H 04/11/21 05:16 MCHC 33 % (30-34) 04/11/21 05:16 RDW 16.1 % (13.2-15.2) H 04/11/21 05:16 Plt Count 180 K/mm3 (140-440) 04/11/21 05:16 Lymph % (Auto) 10.5 % (13.4-35.0) L 04/11/21 05:16 Mcpherson % (Auto) 13.1 % (0.0-7.3) H 04/11/21 05:16 Eos % (Auto) 0.2 % (0.0-4.3) 04/11/21 05:16 Baso % (Auto) 0.4 % (0.0-1.8) 04/11/21 05:16 Lymph # (Auto) 1.9 K/mm3 (1.2-5.4) 04/11/21 05:16 Mcpherson # (Auto) 2.4 K/mm3 (0.0-0.8) H 04/11/21 05:16 Eos # (Auto) 0.0 K/mm3 (0.0-0.4) 04/11/21 05:16 Baso # (Auto) 0.1 K/mm3 (0.0-0.1) 04/11/21 05:16 Add Manual Diff Complete 04/10/21 06:45 Total Counted 100 04/10/21 06:45 Seg Neutrophils % 75.8 % (40.0-70.0) H 04/11/21 05:16 Seg Neuts % (Manual) 72.0 % (40.0-70.0) H 04/10/21 06:45 Band Neutrophils % 10.0 % 04/10/21 06:45 Lymphocytes % (Manual) 8.0 % (13.4-35.0) L 04/10/21 06:45 Reactive Lymphs % (Man) 0 % 04/10/21 06:45 Monocytes % (Manual) 9.0 % (0.0-7.3) H 04/10/21 06:45 Eosinophils % (Manual) 0 % (0.0-4.3) 04/10/21 06:45 Basophils % (Manual) 1.0 % (0.0-1.8) 04/10/21 06:45 Metamyelocytes % 0 % 04/10/21 06:45 Myelocytes % 0 % 04/10/21 06:45 Promyelocytes % 0 % 04/10/21 06:45 Blast Cells % 0 % 04/10/21 06:45 Nucleated RBC % Not Reportable 04/10/21 06:45 Seg Neutrophils # 13.7 K/mm3 (1.8-7.7) H 04/11/21 05:16 Seg Neutrophils # Man 16.1 K/mm3 (1.8-7.7) H 04/10/21 06:45 Band Neutrophils # 2.2 K/mm3 04/10/21 06:45 Lymphocytes # (Manual) 1.8 K/mm3 (1.2-5.4) 04/10/21 06:45 Abs React Lymphs (Man) 0.0 K/mm3 04/10/21 06:45 Monocytes # (Manual) 2.0 K/mm3 (0.0-0.8) H 04/10/21 06:45 Eosinophils # (Manual) 0.0 K/mm3 (0.0-0.4) 04/10/21 06:45 Basophils # (Manual) 0.2 K/mm3 (0.0-0.1) H 04/10/21 06:45 Metamyelocytes # 0.0 K/mm3 04/10/21 06:45 Myelocytes # 0.0 K/mm3 04/10/21 06:45 Promyelocytes # 0.0 K/mm3 04/10/21 06:45 Blast Cells # 0.0 K/mm3 04/10/21 06:45 WBC Morphology Not Reportable 04/10/21 06:45 Hypersegmented Neuts Not Reportable 04/10/21 06:45 Hyposegmented Neuts Not Reportable 04/10/21 06:45 Hypogranular Neuts Not Reportable 04/10/21 06:45 Smudge Cells Not Reportable 04/10/21 06:45 Toxic Granulation Not Reportable 04/10/21 06:45 Toxic Vacuolation Not Reportable 04/10/21 06:45 Dohle Bodies Not Reportable 04/10/21 06:45 Pelger-Huet Anomaly Not Reportable 04/10/21 06:45 Meli Rods Not Reportable 04/10/21 06:45 Platelet Estimate Consistent w auto 04/10/21 06:45 Clumped Platelets Rare 04/10/21 06:45 Plt Clumps, EDTA Not Reportable 04/10/21 06:45 Large Platelets Not Reportable 04/10/21 06:45 Giant Platelets Not Reportable 04/10/21 06:45 Platelet Satelliting Not Reportable 04/10/21 06:45 Plt Morphology Comment Not Reportable 04/10/21 06:45 RBC Morphology Not Reportable 04/10/21 06:45 Dimorphic RBCs Not Reportable 04/10/21 06:45 Polychromasia Not Reportable 04/10/21 06:45 Hypochromasia 1+ 04/10/21 06:45 Poikilocytosis Not Reportable 04/10/21 06:45 Anisocytosis Not Reportable 04/10/21 06:45 Microcytosis Not Reportable 04/10/21 06:45 Macrocytosis 1+ 04/10/21 06:45 Spherocytes Not Reportable 04/10/21 06:45 Pappenheimer Bodies Not Reportable 04/10/21 06:45 Sickle Cells Not Reportable 04/10/21 06:45 Target Cells Not Reportable 04/10/21 06:45 Tear Drop Cells Not Reportable 04/10/21 06:45 Ovalocytes Not Reportable 04/10/21 06:45 Helmet Cells Not Reportable 04/10/21 06:45 [place] Bodies Not Reportable 04/10/21 06:45 [place] Rings Not Reportable 04/10/21 06:45 [place] Cells Not Reportable 04/10/21 06:45 Bite Cells Not Reportable 04/10/21 06:45 Crenated Cell Not Reportable 04/10/21 06:45 Elliptocytes Not Reportable 04/10/21 06:45 Acanthocytes (Spur) Not Reportable 04/10/21 06:45 Rouleaux Not Reportable 04/10/21 06:45 Hemoglobin C Crystals Not Reportable 04/10/21 06:45 Schistocytes Not Reportable 04/10/21 06:45 Malaria parasites Not Reportable 04/10/21 06:45 Albert Bodies Not Reportable 04/10/21 06:45 Hem Pathologist Commnt No 04/10/21 06:45 PT 30.7 Sec. (12.2-14.9) H 04/11/21 05:16 INR 2.68 (0.87-1.13) H 04/11/21 05:16 APTT 57.9 Sec. (24.2-36.6) H 04/11/21 05:16 Sodium 140 mmol/L (137-145) 04/11/21 05:16 Potassium 3.2 mmol/L (3.6-5.0) L 04/11/21 05:16 Chloride 104.4 mmol/L (98-107) 04/11/21 05:16 Carbon Dioxide 21 mmol/L (22-30) L 04/11/21 05:16 Anion Gap 18 mmol/L 04/11/21 05:16 BUN 17 mg/dL (7-17) 04/11/21 05:16 Creatinine 0.5 mg/dL (0.6-1.2) L 04/11/21 05:16 Estimated GFR > 60 ml/min 04/11/21 05:16 BUN/Creatinine Ratio 34 % 04/11/21 05:16 Glucose 79 mg/dL (65-100) 04/11/21 05:16 Lactic Acid 1.80 mmol/L (0.7-2.0) 04/11/21 05:16 Calcium 7.8 mg/dL (8.4-10.2) L 04/11/21 05:16 Magnesium 2.00 mg/dL (1.7-2.3) 04/10/21 06:45 Total Bilirubin 15.80 mg/dL (0.1-1.2) H 04/11/21 05:16 AST 158 units/L (5-40) H 04/11/21 05:16 ALT 19 units/L (7-56) 04/11/21 05:16 Alkaline Phosphatase 170 units/L (35-129) H 04/11/21 05:16 Ammonia 94.0 umol/L (25-60) H 04/10/21 16:51 Total Protein 6.4 g/dL (6.3-8.2) 04/11/21 05:16 Albumin 1.9 g/dL (3.9-5) L 04/11/21 05:16 Albumin/Globulin Ratio 0.4 % 04/11/21 05:16 Lipase 4 units/L (13-60) L 04/10/21 06:45 HCG, Qual Negative (Negative) 04/10/21 06:45 Acetaminophen 5.0 ug/mL (10.0-30.0) L 04/10/21 16:51 Valproic Acid 22.7 ug/mL (50-100) L 04/10/21 07:26 Hepatitis A IgM Ab Non-reactive (NonReactive) 04/10/21 06:45 Hep Bs Antigen Non-reactive (Negative) 04/10/21 06:45 Hep B Core IgM Ab Non-reactive (NonReactive) 04/10/21 06:45 Hepatitis C Antibody Non-reactive (NonReactive) 04/10/21 06:45 Microbiology: Microbiology 04/10/21 08:53 Peripheral/Venous Blood Culture - Preliminary Culture in Progress 04/10/21 08:53 Peripheral/Venous Blood Culture - Preliminary Culture in Progress Active Medications - Current Medications Current Medications: Generic Name Dose Route Start Last Admin Trade Name Freq PRN Reason Stop Dose Admin Divalproex Sodium 125 mg 04/10/21 12:00 04/10/21 22:[address] 125 Mg Tab PO 125 mg BID HALEY Administration Enoxaparin Sodium 40 mg 04/10/21 12:00 04/10/21 14:20 Enoxaparin 40 Mg/0.4 Ml Inj SUB-Q 40 mg QDAY HALEY Administration Ceftriaxone Sodium 1 gm in 50 mls @ 100 mls/hr 04/10/21 16:00 Rocephin/Ns 1 Gm/50 Ml IV Q24H HALEY Protocol Levetiracetam 500 mg 04/10/21 12:00 04/10/21 22:19 Levetiracetam 500 Mg Tab PO 500 mg BID HALEY Administration Lorazepam 2 mg 04/10/21 16:00 Lorazepam 2 Mg/Ml Vial IV Q1H PRN CIWA-Ar 8-15 Lorazepam 4 mg 04/10/21 16:00 Lorazepam 2 Mg/Ml Vial IV Q1H PRN CIWA-Ar 16-25 Ondansetron HCl 4 mg 04/10/21 12:00 Ondansetron 4 Mg/2 Ml Inj IV Q8H PRN Nausea And Vomiting Sodium Chloride 10 ml 04/10/21 12:00 04/10/21 22:19 Sodium Chloride 0.9% 10 Ml Flush Syringe IV 10 ml BID HALEY Administration Sodium Chloride 10 ml 04/10/21 12:00 Sodium Chloride 0.9% 10 Ml Flush Syringe IV PRN PRN LINE FLUSH Spironolactone 12.5 mg 04/10/21 12:00 04/10/21 15:22 Spironolactone 25 Mg Tab PO 12.5 mg QDAY HALEY Administration
[2021-04-11] MEDS: levETIRAcetam 500 MG TAB PO SCH ×2 (15:54→22:14)
[2021-04-11] MEDS: ENOXAPARIN 40 MG/0.4 ML INJ SUB-Q SCH (15:54)
[2021-04-11] MEDS: SPIRONOLACTONE 25 MG TAB PO SCH (15:55)
[2021-04-11] MEDS: DIVALPROEX DR 125 MG TAB PO SCH ×2 (15:55→22:14)
[2021-04-11] MEDS: cefTRIAXone/NS 1 GM/50 ML 1 GM/50 ML BAG IV SCH (15:58)
--- NOTE | 2021-04-11 19:50 | Gastroenterology Consultation ---
History of Present Illness - Reason for Consult Consult date: 04/11/21 Hepatitis/Pancreatitis Requesting physician: SHANNON DOWNING - History of Present Illness The patient is a 41 yo female with a hx of EtOH pancreatitis, admitted with abdominal swelling and acute liver injury. She is also COVID positive. She admits to drinking up to a pint of liquor daily for the last several months. She is alert and lucid without tremors and no signs of DTs. She was not on di uretics or under the care of a GI specialist. She denies chronic diarrhea, but there is significant chronic pancreatitis changes on the CT. She has a family hx of EtOH cirrhosis in an uncle. She denies prior hepatitis exposure. Past History Past Medical History: seizures, other (alcohol abuse, pancreatitis) Past Surgical History: Other (tubal ligation) Social history: alcohol abuse. denies: smoking Family history: no significant family history Medications and Allergies Allergies Allergy/AdvReac Type Severity Reaction Status Date / Time Penicillins AdvReac Itching Verified 04/10/21 05:54 Home Medications Medication Instructions Recorded Confirmed Last Taken Type levETIRAcetam [Keppra TAB] 500 mg PO BID #60 tablet 11/06/19 04/11/21 03/16/21 Rx Potassium Chloride [K-Dur] 20 meq PO BID #4 tab 01/09/21 04/11/21 03/16/[address] [Depakote Dr] 125 mg PO BID 03/17/21 04/11/21 03/16/21 History Magnesium 200 mg PO BID #7 tablet 03/18/21 04/11/21 Unknown Rx Active Meds: Active Medications Divalproex Sodium (Divalproex Dr 125 Mg Tab) 125 mg PO BID [facility] Last Admin: 04/11/21 15:55 Dose: 125 mg Enoxaparin Sodium (Enoxaparin 40 Mg/0.4 Ml Inj) 40 mg SUB-Q QDAY [facility] Last Admin: 04/11/21 15:54 Dose: 40 mg Ceftriaxone Sodium (Rocephin/Ns 1 Gm/50 Ml) 1 gm in 50 mls @ 100 mls/hr IV Q24H [facility]; Protocol Last Admin: 04/11/21 15:58 Dose: 100 mls/hr Levetiracetam (Levetiracetam 500 Mg Tab) 500 mg PO BID [facility] Last Admin: 04/11/21 15:54 Dose: 500 mg Lorazepam (Lorazepam 2 Mg/Ml Vial) 2 mg IV Q1H PRN PRN Reason: CIWA-Ar 8-15 Lorazepam (Lorazepam 2 Mg/Ml Vial) 4 mg IV Q1H PRN PRN Reason: CIWA-Ar 16-25 Ondansetron HCl (Ondansetron 4 Mg/2 Ml Inj) 4 mg IV Q8H PRN PRN Reason: Nausea And Vomiting Sodium Chloride (Sodium Chloride 0.9% 10 Ml Flush Syringe) 10 ml IV BID [facility] Last Admin: 04/11/21 15:57 Dose: 10 ml Sodium Chloride (Sodium Chloride 0.9% 10 Ml Flush Syringe) 10 ml IV PRN PRN PRN Reason: LINE FLUSH Spironolactone (Spironolactone 25 Mg Tab) 12.5 mg PO QDAY [facility] Last Admin: 04/11/21 15:55 Dose: 12.5 mg I HAVE REVIEWED/RECONCILED MEDS Review of Systems - Review of Systems All systems: negative (as noted in the HPI) Exam - Constitutional Vital Signs: Temp Pulse Resp BP Pulse Ox 97.9 F 112 H 16 113/64 93 04/11/21 15:56 04/11/21 15:56 04/11/21 15:56 04/11/21 15:56 04/11/21 15:56 General appearance: no acute distress - EENT Eyes: PERRL, EOM intact, scleral icterus ENT: hearing intact, clear oral mucosa - Neck Neck: supple, normal ROM - Respiratory Respiratory effort: normal Respiratory: bilateral: CTA - Cardiovascular Rhythm: regular Heart Sounds: Present: S1 & S2 Extremities: no ischemia, No edema - Gastrointestinal General gastrointestinal: Present: soft, non-tender, distended (Moderate ascites) - Integumentary Integumentary: Present: clear, warm, jaundice - Neurologic Neurological: alert and oriented x3 - Psychiatric Psychiatric: appropriate mood/affect - Labs CBC & Chem 7: 04/11/21 05:16 04/11/21 05:16 Lab Results: Laboratory Results - last 24 hr 04/10/21 04/11/21 04/11/21 23:33 05:16 05:16 WBC 18.0 H RBC 3.00 L Hgb 10.1 Hct 30.4 MCV 101 H MCH 34 H MCHC 33 RDW 16.1 H Plt Count 180 Lymph % (Auto) 10.5 L Williamson % (Auto) 13.1 H Eos % (Auto) 0.2 Baso % (Auto) 0.4 Lymph # (Auto) 1.9 Williamson # (Auto) 2.4 H Eos # (Auto) 0.0 Baso # (Auto) 0.1 Seg Neutrophils % 75.8 H Seg Neutrophils # 13.7 H PT 30.7 H INR 2.68 H APTT 57.9 H Sodium Potassium Chloride Carbon Dioxide Anion Gap BUN Creatinine Estimated GFR BUN/Creatinine Ratio Glucose Lactic Acid 2.80 H* Calcium Total Bilirubin AST ALT Alkaline Phosphatase Lactate Dehydrogenase Total Protein Albumin Albumin/Globulin Ratio Coronavirus (PCR) 04/11/21 04/11/21 04/11/21 05:16 05:16 18:55 WBC RBC Hgb Hct MCV MCH MCHC RDW Plt Count Lymph % (Auto) Williamson % (Auto) Eos % (Auto) Baso % (Auto) Lymph # (Auto) Williamson # (Auto) Eos # (Auto) Baso # (Auto) Seg Neutrophils % Seg Neutrophils # PT INR APTT Sodium 140 Potassium 3.2 L Chloride 104.4 Carbon Dioxide 21 L Anion Gap 18 BUN 17 Creatinine 0.5 L Estimated GFR > 60 BUN/Creatinine Ratio 34 Glucose 79 Lactic Acid 1.80 Calcium 7.8 L Total Bilirubin 15.80 H AST 158 H ALT 19 Alkaline Phosphatase 170 H Lactate Dehydrogenase 279 H Total Protein 6.4 Albumin 1.9 L Albumin/Globulin Ratio 0.4 Coronavirus (PCR) 04/11/21 Unknown WBC RBC Hgb Hct MCV MCH MCHC RDW Plt Count Lymph % (Auto) Williamson % (Auto) Eos % (Auto) Baso % (Auto) Lymph # (Auto) Williamson # (Auto) Eos # (Auto) Baso # (Auto) Seg Neutrophils % Seg Neutrophils # PT INR APTT Sodium Potassium Chloride Carbon Dioxide Anion Gap BUN Creatinine Estimated GFR BUN/Creatinine Ratio Glucose Lactic Acid Calcium Total Bilirubin AST ALT Alkaline Phosphatase Lactate Dehydrogenase Total Protein Albumin Albumin/Globulin Ratio Coronavirus (PCR) Positive A Assessment and Plan - Patient Problems (1) Chronic pancreatitis due to chronic alcoholism Current Visit: Yes Status: Acute Plan to address problem: - No severe diarrhea, but muscle atrophy from malnutrition. - Would not start pancreatic enzymes at present. - Encourage abstinence. (2) Alcoholic liver disease Current Visit: Yes Status: Acute Plan to address problem: - Elevated LFTs from EtOH, but also acute COVID. - Hepatitis studies negative, and US is unremarkable. - Paracentesis tomorrow to assess; after would start lasix/aldactone . - MVI therapy, nutrition, and abstinence from EtOH stressed.
[2021-04-11] MEDS ORDERED: MORPHINE 2 MG/1 ML INJ IV ONE (21:37)
[2021-04-11] MEDS: ONDANSETRON 4 MG/2 ML INJ IV PRN (22:15)
[2021-04-12] MEDS: ENOXAPARIN 40 MG/0.4 ML INJ SUB-Q SCH (09:03)
--- NOTE | 2021-04-12 09:18 | Procedure Note ---
Date of procedure: 04/12/21 Pre-op diagnosis: ascites Post-op diagnosis: same Procedure: US paracentesis Findings: small to medium ascites Anesthesia: local Surgeon: STEFANO ROCA Estimated blood loss: none Pathology: list (120cc saved) Specimen disposition: to lab Condition: stable Disposition: floor
--- NOTE | 2021-04-12 09:23 | Ultrasound Report ---
ULTRASOUND-GUIDED PARACENTESIS HISTORY: Ascites/abdominal paracentesis/fluid analysis. PROCEDURE: The risks (including but not limited to bleeding, infection, and bowel injury) and benefi ts were explained to the patient and informed consent was obtained. A time out procedure was perform ed. Ultrasound was used to evaluate the abdomen and locate the largest ascites fluid pocket. Once the sk in was marked, the procedure site was prepped and draped in the usual sterile fashion and lidocaine w as used for local anesthesia. A 5 [place] centesis catheter was placed. The patient was monitored cl osely throughout the procedure, and a total of 1300 mL of yellow fluid was aspirated. Samples were s ent to the lab for further evaluation per the primary clinicians orders. The patient tolerated the procedure well with no complications. IMPRESSION: Successful ultrasound-guided paracentesis as described. Signer Name: Arun Osman Jr, MD Signed: 04/12/2021 9:18 AM Workstation Name: [id number]
--- NOTE | 2021-04-12 09:34 | Progress Note ---
Assessment and Plan Assessment and plan: Patient had ultrasound-guided abdominal paracentesis this morning and removal of 1300 mL of peritoneal fluid Fluid sent for analysis, patient tolerated the procedure well #Acute liver failure - icterus, jaundiced, ascites - AST:179, ALT: 20, Bili: 15.9, plt: 180 - coagulation profile ordered, serum ammonia, APAP level ordered - CTAP: fatty liver infiltrates, ascites. Please refer to official radiology report. - hepatitis panel ordered - Abd US with doppler of portal/hepatic vein flow ordered - consultation placed to gastroenterology for further guidance. #Ascites; Status post abdominal paracentesis/1300 mL peritoneal fluid removed, sent for analysis - doubt SBP, no fever, VSS. Patient does have leukocytosis, high LA. Will cover with rocephin at this time. Ultrasound guided paracentesis . Peritoneal fluid analysis - ascitic fluid sample should be sent for albumin measurement and culture - initiate spironalactone. will hold off on lasix due to BP in 110's systolic. - NPO at midnight # Severe Sepsis POA - abd pain, la: 3.2,WBC: 22K, source: possibly abd. - rocephin IV ordered, albumin 25 gm admin. - IV fluids - Bcx, ucx, ascitic fluid cx. - covid pcr ordered. Patient unvaccinated. #Alcoholic hepatitis with Ascites - likely etiology of hepatitis. - management as above #Fatty liver disease - noted findings on CTAP #History of alcoholic pancreatitis - lipase 4. 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 #Person under investigation for COVID 19 #Advance care planning Disease education conducted, care plan discussed, diagnoses discussed, prognosis discussed, patient is full code, patient acknowledges understanding and agree with care plan, +30 minutes. Full code Lovenox 40 mg daily Brief history and daily hospital course; 41-year-old female patient with significant past medical history of chronic alcohol use seizure disorder was admitted through emergency room with abdominal distention ascites alcoholic liver disease, patient underwent ultrasound-guided abdominal paracentesis and fluid was sent for analysis 04/11/2021; order changed to ultrasound-guided abdominal paracentesis, fluid analysis Closely monitor, continue current management Plan of care reviewed with the patient and her nurse 04/12/2021;s/p thoracentesis,1300 mi fluid removed and sent for analysis Patient tolerated procedure well, follow GI recommended History Interval history: I have seen and examined the patient at the bedside Patient's chart and medications reviewed Patient had abdominal paracentesis today and removal of 1200 mL of peritoneal fluid Hospitalist Physical - Constitutional Vitals: Temp Pulse Resp BP Pulse Ox 98.4 F 16 L 16 96/53 98 04/12/21 09:00 04/12/21 09:00 04/12/21 09:00 04/12/21 09:00 04/12/21 09:00 General appearance: Present: no acute distress, cachectic, disheveled - EENT Eyes: Present: PERRL, EOM intact - Neck Neck: Present: supple, normal ROM - Respiratory Respiratory effort: normal Respiratory: bilateral: diminished, negative: rales, rhonchi, wheezing - Cardiovascular Rhythm: regular Heart Sounds: Present: S1 & S2 - Extremities Extremities: no ischemia, No edema - Abdominal General gastrointestinal: soft, non-tender, non-distended, normal bowel sounds - Integumentary Integumentary: Present: clear, warm, jaundice - Psychiatric Psychiatric: appropriate mood/affect, cooperative - Neurologic Neurologic: moves all extremities Results - Labs CBC & Chem 7: 04/11/21 05:16 04/11/21 05:16 Labs: Laboratory Last Values WBC 18.0 K/mm3 (4.5-11.0) H 04/11/21 05:16 RBC 3.00 M/mm3 (3.65-5.03) L 04/11/21 05:16 Hgb 10.1 gm/dl (10.1-14.3) 04/11/21 05:16 Hct 30.4 % (30.3-42.9) 04/11/21 05:16 MCV 101 fl (79-97) H 04/11/21 05:16 MCH 34 pg (28-32) H 04/11/21 05:16 MCHC 33 % (30-34) 04/11/21 05:16 RDW 16.1 % (13.2-15.2) H 04/11/21 05:16 Plt Count 180 K/mm3 (140-440) 04/11/21 05:16 Lymph % (Auto) 10.5 % (13.4-35.0) L 04/11/21 05:16 [place] % (Auto) 13.1 % (0.0-7.3) H 04/11/21 05:16 Eos % (Auto) 0.2 % (0.0-4.3) 04/11/21 05:16 Baso % (Auto) 0.4 % (0.0-1.8) 04/11/21 05:16 Lymph # (Auto) 1.9 K/mm3 (1.2-5.4) 04/11/21 05:16 Dillon # (Auto) 2.4 K/mm3 (0.0-0.8) H 04/11/21 05:16 Eos # (Auto) 0.0 K/mm3 (0.0-0.4) 04/11/21 05:16 Baso # (Auto) 0.1 K/mm3 (0.0-0.1) 04/11/21 05:16 Add Manual Diff Complete 04/10/21 06:45 Total Counted 100 04/10/21 06:45 Seg Neutrophils % 75.8 % (40.0-70.0) H 04/11/21 05:16 Seg Neuts % (Manual) 72.0 % (40.0-70.0) H 04/10/21 06:45 Band Neutrophils % 10.0 % 04/10/21 06:45 Lymphocytes % (Manual) 8.0 % (13.4-35.0) L 04/10/21 06:45 Reactive Lymphs % (Man) 0 % 04/10/21 06:45 Monocytes % (Manual) 9.0 % (0.0-7.3) H 04/10/21 06:45 Eosinophils % (Manual) 0 % (0.0-4.3) 04/10/21 06:45 Basophils % (Manual) 1.0 % (0.0-1.8) 04/10/21 06:45 Metamyelocytes % 0 % 04/10/21 06:45 Myelocytes % 0 % 04/10/21 06:45 Promyelocytes % 0 % 04/10/21 06:45 Blast Cells % 0 % 04/10/21 06:45 Nucleated RBC % Not Reportable 04/10/21 06:45 Seg Neutrophils # 13.7 K/mm3 (1.8-7.7) H 04/11/21 05:16 Seg Neutrophils # Man 16.1 K/mm3 (1.8-7.7) H 04/10/21 06:45 Band Neutrophils # 2.2 K/mm3 04/10/21 06:45 Lymphocytes # (Manual) 1.8 K/mm3 (1.2-5.4) 04/10/21 06:45 Abs React Lymphs (Man) 0.0 K/mm3 04/10/21 06:45 Monocytes # (Manual) 2.0 K/mm3 (0.0-0.8) H 04/10/21 06:45 Eosinophils # (Manual) 0.0 K/mm3 (0.0-0.4) 04/10/21 06:45 Basophils # (Manual) 0.2 K/mm3 (0.0-0.1) H 04/10/21 06:45 Metamyelocytes # 0.0 K/mm3 04/10/21 06:45 Myelocytes # 0.0 K/mm3 04/10/21 06:45 Promyelocytes # 0.0 K/mm3 04/10/21 06:45 Blast Cells # 0.0 K/mm3 04/10/21 06:45 WBC Morphology Not Reportable 04/10/21 06:45 Hypersegmented Neuts Not Reportable 04/10/21 06:45 Hyposegmented Neuts Not Reportable 04/10/21 06:45 Hypogranular Neuts Not Reportable 04/10/21 06:45 Smudge Cells Not Reportable 04/10/21 06:45 Toxic Granulation Not Reportable 04/10/21 06:45 Toxic Vacuolation Not Reportable 04/10/21 06:45 Dohle Bodies Not Reportable 04/10/21 06:45 Pelger-Huet Anomaly Not Reportable 04/10/21 06:45 Meli Rods Not Reportable 04/10/21 06:45 Platelet Estimate Consistent w auto 04/10/21 06:45 Clumped Platelets Rare 04/10/21 06:45 Plt Clumps, EDTA Not Reportable 04/10/21 06:45 Large Platelets Not Reportable 04/10/21 06:45 Giant Platelets Not Reportable 04/10/21 06:45 Platelet Satelliting Not Reportable 04/10/21 06:45 Plt Morphology Comment Not Reportable 04/10/21 06:45 RBC Morphology Not Reportable 04/10/21 06:45 Dimorphic RBCs Not Reportable 04/10/21 06:45 Polychromasia Not Reportable 04/10/21 06:45 Hypochromasia 1+ 04/10/21 06:45 Poikilocytosis Not Reportable 04/10/21 06:45 Anisocytosis Not Reportable 04/10/21 06:45 Microcytosis Not Reportable 04/10/21 06:45 Macrocytosis 1+ 04/10/21 06:45 Spherocytes Not Reportable 04/10/21 06:45 Pappenheimer Bodies Not Reportable 04/10/21 06:45 Sickle Cells Not Reportable 04/10/21 06:45 Target Cells Not Reportable 04/10/21 06:45 Tear Drop Cells Not Reportable 04/10/21 06:45 Ovalocytes Not Reportable 04/10/21 06:45 Helmet Cells Not Reportable 04/10/21 06:45 [place] Bodies Not Reportable 04/10/21 06:45 [place] Rings Not Reportable 04/10/21 06:45 [place] Cells Not Reportable 04/10/21 06:45 Bite Cells Not Reportable 04/10/21 06:45 Crenated Cell Not Reportable 04/10/21 06:45 Elliptocytes Not Reportable 04/10/21 06:45 Acanthocytes (Spur) Not Reportable 04/10/21 06:45 Rouleaux Not Reportable 04/10/21 06:45 Hemoglobin C Crystals Not Reportable 04/10/21 06:45 Schistocytes Not Reportable 04/10/21 06:45 Malaria parasites Not Reportable 04/10/21 06:45 [place] Bodies Not Reportable 04/10/21 06:45 Hem Pathologist Commnt No 04/10/21 06:45 PT 30.7 Sec. (12.2-14.9) H 04/11/21 05:16 INR 2.68 (0.87-1.13) H 04/11/21 05:16 APTT 57.9 Sec. (24.2-36.6) H 04/11/21 05:16 Sodium 140 mmol/L (137-145) 04/11/21 05:16 Potassium 3.2 mmol/L (3.6-5.0) L 04/11/21 05:16 Chloride 104.4 mmol/L (98-107) 04/11/21 05:16 Carbon Dioxide 21 mmol/L (22-30) L 04/11/21 05:16 Anion Gap 18 mmol/L 04/11/21 05:16 BUN 17 mg/dL (7-17) 04/11/21 05:16 Creatinine 0.5 mg/dL (0.6-1.2) L 04/11/21 05:16 Estimated GFR > 60 ml/min 04/11/21 05:16 BUN/Creatinine Ratio 34 % 04/11/21 05:16 Glucose 79 mg/dL (65-100) 04/11/21 05:16 Lactic Acid 1.80 mmol/L (0.7-2.0) 04/11/21 05:16 Calcium 7.8 mg/dL (8.4-10.2) L 04/11/21 05:16 Magnesium 2.00 mg/dL (1.7-2.3) 04/10/21 06:45 Total Bilirubin 15.80 mg/dL (0.1-1.2) H 04/11/21 05:16 AST 158 units/L (5-40) H 04/11/21 05:16 ALT 19 units/L (7-56) 04/11/21 05:16 Alkaline Phosphatase 170 units/L (35-129) H 04/11/21 05:16 Ammonia 94.0 umol/L (25-60) H 04/10/21 16:51 Lactate Dehydrogenase 279 units/L (91-180) H 04/11/21 18:55 Total Protein 6.4 g/dL (6.3-8.2) 04/11/21 05:16 Albumin 1.9 g/dL (3.9-5) L 04/11/21 05:16 Albumin/Globulin Ratio 0.4 % 04/11/21 05:16 Lipase 4 units/L (13-60) L 04/10/21 06:45 HCG, Qual Negative (Negative) 04/10/21 06:45 Acetaminophen 5.0 ug/mL (10.0-30.0) L 04/10/21 16:51 Valproic Acid 22.7 ug/mL (50-100) L 04/10/21 07:26 Coronavirus (PCR) Positive (Negative) A 04/11/21 Unknown Hepatitis A IgM Ab Non-reactive (NonReactive) 04/10/21 06:45 Hep Bs Antigen Non-reactive (Negative) 04/10/21 06:45 Hep B Core IgM Ab Non-reactive (NonReactive) 04/10/21 06:45 Hepatitis C Antibody Non-reactive (NonReactive) 04/10/21 06:45 Microbiology: Microbiology 04/10/21 08:53 Peripheral/Venous Blood Culture - Preliminary NO GROWTH AFTER 24 HOURS 04/10/21 08:53 Peripheral/Venous Blood Culture - Preliminary NO GROWTH AFTER 24 HOURS Ceja/IV: Voiding Method Toilet Active Medications - Current Medications Current Medications: Generic Name Dose Route Start Last Admin Trade Name Freq PRN Reason Stop Dose Admin Divalproex Sodium 125 mg 04/10/21 12:00 04/11/21 22:[address] 125 Mg Tab PO 125 mg BID HALEY Administration Enoxaparin Sodium 40 mg 04/10/21 12:00 04/12/21 09:03 Enoxaparin 40 Mg/0.4 Ml Inj SUB-Q Not Given QDAY HALEY Ceftriaxone Sodium 1 gm in 50 mls @ 100 mls/hr 04/10/21 16:00 04/11/21 15:58 Rocephin/Ns 1 Gm/50 Ml IV 100 mls/hr Q24H HALEY Administration Protocol Levetiracetam 500 mg 04/10/21 12:00 04/11/21 22:14 Levetiracetam 500 Mg Tab PO 500 mg BID HALEY Administration Lorazepam 2 mg 04/10/21 16:00 Lorazepam 2 Mg/Ml Vial IV Q1H PRN CIWA-Ar 8-15 Lorazepam 4 mg 04/10/21 16:00 Lorazepam 2 Mg/Ml Vial IV Q1H PRN CIWA-Ar 16-25 Multivitamins 1 each 04/12/21 10:00 Multivitamins ,Therapeutic Tab PO QDAY HALEY Ondansetron HCl 4 mg 04/10/21 12:00 04/11/21 22:15 Ondansetron 4 Mg/2 Ml Inj IV 4 mg Q8H PRN Administration Nausea And Vomiting Sodium Chloride 10 ml 04/10/21 12:00 04/11/21 22:15 Sodium Chloride 0.9% 10 Ml Flush Syringe IV 10 ml BID HALEY Administration Sodium Chloride 10 ml 04/10/21 12:00 Sodium Chloride 0.9% 10 Ml Flush Syringe IV PRN PRN LINE FLUSH Spironolactone 12.5 mg 04/10/21 12:00 04/11/21 15:55 Spironolactone 25 Mg Tab PO 12.5 mg QDAY HALEY Administration
[2021-04-12] MEDS: SPIRONOLACTONE 25 MG TAB PO SCH (09:44)
[2021-04-12] MEDS: MULTIVITAMINS ,THERAPEUTIC TAB PO SCH (09:44)
[2021-04-12] MEDS: levETIRAcetam 500 MG TAB PO SCH ×2 (09:44→21:06)
[2021-04-12] MEDS: DIVALPROEX DR 125 MG TAB PO SCH ×2 (09:45→21:06)
[2021-04-12] MEDS ORDERED: FUROSEMIDE 20 MG TAB PO NR (10:27)
--- NOTE | 2021-04-12 10:43 | Gastroenterology Progress Note ---
Assessment and Plan - Patient Problems (1) Chronic pancreatitis due to chronic alcoholism Current Visit: Yes Status: Acute Plan to address problem: - No severe diarrhea, but muscle atrophy from malnutrition. - Would not start pancreatic enzymes at present. - Encourage abstinence. (2) Alcoholic liver disease Current Visit: Yes Status: Acute Plan to address problem: - Elevated LFTs from EtOH, but also acute COVID. - Hepatitis studies negative, and US is unremarkable. - Paracentesis fluid pending; will start lasix/aldactone . - MVI therapy, nutrition, and abstinence from EtOH stressed. - OK to discharge home when stable. Subjective Date of service: 04/12/21 Principal diagnosis: Hepatitis/Pancreatitis Interval history: The patient had her paracentesis today without event. She has no N/V/abdominal pain, and tolerated a regular diet today. No blood in her stools. Objective - Constitutional Vitals: Temp Pulse Resp BP Pulse Ox 97.9 F 102 H 17 112/66 94 04/12/21 09:52 04/12/21 09:52 04/12/21 09:52 04/12/21 09:52 04/12/21 09:52 General appearance: no acute distress - Respiratory Respiratory effort: normal Respiratory: bilateral: CTA - Cardiovascular Rhythm: regular Heart Sounds: Present: S1 & S2 - Gastrointestinal General gastrointestinal: Present: soft, non-tender, non-distended - Labs CBC & Chem 7: 04/11/21 05:16 04/11/21 05:16 Labs: Laboratory Results - last 24 hr 04/11/21 04/11/21 18:55 Unknown Lactate Dehydrogenase 279 H Coronavirus (PCR) Positive A
[2021-04-12 12:01] LABS: Total Cells Counted 100 /mm3
[2021-04-12] MEDS: cefTRIAXone/NS 1 GM/50 ML 1 GM/50 ML BAG IV SCH (15:27)
[2021-04-12] MEDS: MORPHINE 2 MG/1 ML INJ IV PRN (16:40)
[2021-04-12] MEDS: ONDANSETRON 4 MG/2 ML INJ IV PRN (16:52)
[2021-04-13 05:39] LABS: Hemoglobin 9.3 gm/dl (10.1-14.3); Mean Corpuscular HGB Conc 33 % (30-34); Mean Corpuscular Volume 100 fl (79-97); Platelet Count 147 K/mm3 (140-440); Red Cell Distribution Width 16.6 % (13.2-15.2)
[2021-04-13 06:02] LABS: Alanine Aminotransferase 23 units/L (7-56); Albumin 1.8 g/dL (3.9-5); Blood Urea Nitrogen 12 mg/dL (7-17); Calcium 7.5 mg/dL (8.4-10.2); Hemolysis Index 0
[2021-04-13 06:07] LABS: BUN/Creatinine Ratio 17
[2021-04-13] MEDS ORDERED: POTASSIUM CHLORIDE ER 20 MEQ TAB PO ONE (06:22)
[2021-04-13] MEDS: DIVALPROEX DR 125 MG TAB PO SCH ×2 (09:26→22:11)
[2021-04-13] MEDS: POTASSIUM CHLORIDE 10 MEQ 10 MEQ/100 ML BAG IV SCH ×2 (09:26→10:42)
[2021-04-13] MEDS: MULTIVITAMINS ,THERAPEUTIC TAB PO SCH (09:26)
[2021-04-13] MEDS: levETIRAcetam 500 MG TAB PO SCH ×2 (09:26→22:11)
[2021-04-13] MEDS: SPIRONOLACTONE 50 MG TAB PO SCH (09:26)
[2021-04-13] MEDS: ENOXAPARIN 40 MG/0.4 ML INJ SUB-Q SCH (09:26)
[2021-04-13] MEDS: MORPHINE 2 MG/1 ML INJ IV PRN (09:27)
--- NOTE | 2021-04-13 12:42 | Gastroenterology Progress Note ---
Assessment and Plan - Patient Problems (1) Chronic pancreatitis due to chronic alcoholism Current Visit: Yes Status: Acute Plan to address problem: - No severe diarrhea, but muscle atrophy from malnutrition. - Would not start pancreatic enzymes at present. - Encourage abstinence. (2) Alcoholic liver disease Current Visit: Yes Status: Acute Plan to address problem: - Elevated LFTs from EtOH, but also acute COVID. - Hepatitis studies negative, and US is unremarkable. - Paracentesis fluid pending; will start lasix/aldactone . - MVI therapy, nutrition, and abstinence from EtOH stressed. - OK to discharge home when stable and K stabilized. Subjective Date of service: 04/13/21 Principal diagnosis: Hepatitis/Pancreatitis Interval history: The patient is tolerating a regular diet without N/V/abdominal pain. She has had mild re-accumulation of the fluid, but states that she has also had severe copious urine output on lasix and aldactone. She has no fevers or chills and no severe abdominal pain/diarrhea. Objective - Constitutional Vitals: Temp Pulse Resp BP Pulse Ox 99.0 F 116 H 16 108/61 89 04/13/21 04:11 04/13/21 08:18 04/13/21 04:11 04/13/21 08:16 04/13/21 08:18 General appearance: no acute distress - Respiratory Respiratory effort: normal Respiratory: bilateral: CTA - Cardiovascular Rhythm: regular Heart Sounds: Present: S1 & S2 - Gastrointestinal General gastrointestinal: Present: soft, non-tender, non-distended - Labs CBC & Chem 7: 04/13/21 04:40 04/13/21 04:40 Labs: Laboratory Results - last 24 hr 04/13/21 04/13/21 04/13/21 04:40 04:40 10:00 WBC 17.3 H RBC 2.80 L Hgb 9.3 L Hct 28.0 L MCV 100 H MCH 33 H MCHC 33 RDW 16.6 H Plt Count 147 Sodium 138 Potassium 2.9 L* Chloride 103.0 Carbon Dioxide 20 L Anion Gap 18 BUN 12 Creatinine 0.7 Estimated GFR > 60 BUN/Creatinine Ratio 17 Glucose 71 Calcium 7.5 L Magnesium 1.80 Total Bilirubin 14.10 H AST 195 H ALT 23 Alkaline Phosphatase 173 H Total Protein 6.0 L Albumin 1.8 L Albumin/Globulin Ratio 0.4
--- NOTE | 2021-04-13 14:45 | Progress Note ---
Assessment and Plan #Acute liver failure - icterus, jaundiced, ascites - AST:179, ALT: 20, Bili: 15.9, plt: 180 - coagulation profile ordered, serum ammonia, APAP level ordered - CTAP: fatty liver infiltrates, ascites. Please refer to official radiology report. - hepatitis panel ordered - Abd US with doppler of portal/hepatic vein flow ordered - consultation placed to gastroenterology for further guidance. #Ascites; Status post abdominal paracentesis/1300 mL peritoneal fluid removed, sent for analysis - doubt SBP, no fever, VSS. Patient does have leukocytosis, high LA. Will cover with rocephin at this time. Ultrasound guided paracentesis . Peritoneal fluid analysis - ascitic fluid sample should be sent for albumin measurement and culture - initiate spironalactone. will hold off on lasix due to BP in 110's systolic. - NPO at midnight # Severe Sepsis POA - abd pain, la: 3.2,WBC: 22K, source: possibly abd. - rocephin IV ordered, albumin 25 gm admin. - IV fluids - Bcx, ucx, ascitic fluid cx. - covid pcr ordered. Patient unvaccinated. #Alcoholic hepatitis with Ascites - likely etiology of hepatitis. - management as above #Fatty liver disease - noted findings on CTAP #History of alcoholic pancreatitis - lipase 4. 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 #COVID-19 positive, patient asymptomatic #Advance care planning Disease education conducted, care plan discussed, diagnoses discussed, prognosis discussed, patient is full code, patient acknowledges understanding and agree with care plan, +30 minutes. Full code Lovenox 40 mg daily Brief history and daily hospital course; 41-year-old female patient with significant past medical history of chronic alcohol use seizure disorder was admitted through emergency room with abdominal distention ascites alcoholic liver disease, patient underwent ultrasound-guided abdominal paracentesis and fluid was sent for analysis 04/11/2021; order changed to ultrasound-guided abdominal paracentesis, fluid analysis Closely monitor, continue current management Plan of care reviewed with the patient and her nurse Positive for COVID-19 04/12/2021; s/p thoracentesis,1300 mi fluid removed and sent for analysis Patient tolerated procedure well, follow GI recommended 04/13/21: Potassium 2.9 today, continue to replete, follow BMP, patient noted to have significantly distended abdomen even though she had paracentesis yesterday, will order repeat paracentesis tomorrow morning. cont to follow Subjective Date of service: 04/13/21 Principal diagnosis: Hepatitis/Pancreatitis Interval history: Patient seen and examined at the bedside Medication chart and vitals reviewed Discussed plan of care with RN and with home health care case manager Patient had abdominal paracentesis yesterday and removal of 1200 mL of peritoneal fluid Potassium 2.9 today Objective - Exam Narrative Exam: General appearance: Present: no acute distress, cachectic, disheveled - EENT Eyes: Present: PERRL, EOM intact - Neck Neck: Present: supple, normal ROM - Respiratory Respiratory effort: normal Respiratory: bilateral: diminished, negative: rales, rhonchi, wheezing - Cardiovascular Rhythm: regular Heart Sounds: Present: S1 & S2 - Extremities Extremities: no ischemia, No edema - Abdominal General gastrointestinal: soft, distended, normal bowel sounds - Integumentary Integumentary: Present: clear, warm, jaundice - Psychiatric Psychiatric: appropriate mood/affect, cooperative - Neurologic Neurologic: moves all extremities - Constitutional Vitals: Vital Signs - 12hr 04/13/21 04/13/21 04/13/21 04:11 08:16 08:18 Temperature 99.0 F Pulse Rate 116 H 118 H 116 H Respiratory 16 Rate Blood Pressure 108/65 108/61 O2 Sat by Pulse 89 87 89 Oximetry - Labs CBC & Chem 7: 04/13/21 04:40 04/14/21 06:52 Labs: Abnormal lab results 04/13/21 04/13/21 Range/Units 04:40 04:40 WBC 17.3 H (4.5-11.0) K/mm3 RBC 2.80 L (3.65-5.03) M/mm3 Hgb 9.3 L (10.1-14.3) gm/dl Hct 28.0 L (30.3-42.9) % MCV 100 H (79-97) fl MCH 33 H (28-32) pg RDW 16.6 H (13.2-15.2) % Potassium 2.9 L* (3.6-5.0) mmol/L Carbon Dioxide 20 L (22-30) mmol/L Calcium 7.5 L (8.4-10.2) mg/dL Total Bilirubin 14.10 H (0.1-1.2) mg/dL AST 195 H (5-40) units/L Alkaline Phosphatase 173 H (35-129) units/L Total Protein 6.0 L (6.3-8.2) g/dL Albumin 1.8 L (3.9-5) g/dL
[2021-04-13] MEDS ORDERED: POTASSIUM CHLORIDE 10 MEQ 10 MEQ/100 ML BAG IV SCH (15:00)
[2021-04-13] MEDS: cefTRIAXone/NS 1 GM/50 ML 1 GM/50 ML BAG IV SCH (17:32)
[2021-04-14 07:41] LABS: Blood Urea Nitrogen 9 mg/dL (7-17); Calcium 7.4 mg/dL (8.4-10.2); Hemolysis Index 3
[2021-04-14 07:44] LABS: BUN/Creatinine Ratio 18
[2021-04-14] MEDS: MORPHINE 2 MG/1 ML INJ IV PRN (09:46)
[2021-04-14] MEDS: ENOXAPARIN 40 MG/0.4 ML INJ SUB-Q SCH (09:47)
[2021-04-14] MEDS: MULTIVITAMINS ,THERAPEUTIC TAB PO SCH (09:47)
[2021-04-14] MEDS: DIVALPROEX DR 125 MG TAB PO SCH (09:47)
[2021-04-14] MEDS: levETIRAcetam 500 MG TAB PO SCH (09:48)
[2021-04-14] MEDS: SPIRONOLACTONE 50 MG TAB PO SCH (09:48)
[2021-04-14] MEDS: POTASSIUM CHLORIDE ER 10 MEQ TAB PO SCH ×2 (09:48→10:11)
--- NOTE | 2021-04-14 14:06 | Procedure Note ---
Date of procedure: 04/14/21 Pre-op diagnosis: ascites Post-op diagnosis: same Procedure: US paracentesis Findings: moderate ascites Anesthesia: local Surgeon: STEFANO ROCA Estimated blood loss: none Pathology: list (60cc) Specimen disposition: to lab Condition: stable Disposition: floor
--- NOTE | 2021-04-14 15:47 | Discharge Summary ---
Providers - Providers Date of Admission: 04/10/21 11:17 Date of discharge: 04/14/21 Attending physician: ZAHRAA WHITAKER 04/10/21 11:17 Consult to Physician [CONS] Routine Comment: Consulting Provider: GANGA [facility] Physician Instructions: Reason For Exam: acute liver failure Primary care physician: AHSAN TOVAR Hospitalization Condition: Stable Hospital course: 41-year-old female patient with significant past medical history of chronic alcohol use, seizure disorder was admitted through emergency room with abdominal distention, ascites, alcoholic liver disease. Daily clinical course: 04/11/2021; order changed to ultrasound-guided abdominal paracentesis, fluid analysis Closely monitor, continue current management Plan of care reviewed with the patient and her nurse Positive for COVID-19 - patient asymptomatic 04/12/2021; s/p pararacentesis,1300 mi fluid removed and sent for analysis Patient tolerated procedure well, follow GI recommended 04/13/21: Potassium 2.9 today, continue to replete, follow BMP, patient noted to have significantly distended abdomen even though she had paracentesis yesterday, will order repeat paracentesis tomorrow morning. cont to follow 04/14/21: K level normal today. had another round of paracentesis today with 1.8L ascitic fluid colloction. Patient was placed on aldectone and was discharged home in stable condition with outpt f/u. GI cleared for discharge. Disposition: 01 HOME / SELF CARE / HOMELESS Final Discharge Diagnosis (Prints w/discharge instructions): --Acute liver failure. --Ascitis. --SIRS with organ dysfunction, sepsis ruled out. --Alcoholic hepatitis with Ascites. --Fatty liver disease. --History of alcoholic pancreatitis. --History of alcoholism. --History of seizures. --COVID-19 positive, patient asymptomatic. --hypokalemia Time spent for discharge: 34 minutes Core Measure Documentation - Palliative Care Palliative Care/ Comfort Measures: Not Applicable - Core Measures Any of the following diagnoses?: none Exam - Physical Exam Narrative exam: General appearance: Present: no acute distress, cachectic, disheveled - EENT Eyes: Present: PERRL, EOM intact - Neck Neck: Present: supple, normal ROM - Respiratory Respiratory effort: normal Respiratory: bilateral: diminished, negative: rales, rhonchi, wheezing - Cardiovascular Rhythm: regular Heart Sounds: Present: S1 & S2 - Extremities Extremities: no ischemia, No edema - Abdominal General gastrointestinal: soft, distended, normal bowel sounds - Integumentary Integumentary: Present: clear, warm, jaundice - Psychiatric Psychiatric: appropriate mood/affect, cooperative - Neurologic Neurologic: moves all extremities - Constitutional Vitals: Temp Pulse Resp BP Pulse Ox 98.5 F 117 H 18 115/73 98 04/14/21 08:14 04/14/21 09:48 04/14/21 08:14 04/14/21 08:14 04/14/21 08:14 Plan Activity: advance as tolerated Weight Bearing Status: Non-Weight Bearing Diet: low fat, low salt Special Instructions: restrict fluid intake to (1.2 L daily) Additional Instructions: Follow-up with GI in 1 week. Patient is medically stable for discharge today. Patient advised to follow-up primary care physician within 1 to 2 weeks. Advised to comply with medications diet and follow-up visits. If he has worsening symptoms advised him to contact primary care physician go to the nearest emergency room as needed Follow up with: AHSAN TOVAR MD [Primary Care Provider] - 3-5 Days Prescriptions: Spironolactone [Aldactone] 50 mg PO QDAY #90 tablet
--- NOTE | 2021-04-14 16:17 | XRay Report ---
CHEST 1 VIEW INDICATION: COVID positive. COMPARISON: 11/06/2019 FINDINGS: Support devices: None. Heart: Within normal limits. Lungs/Pleura: There is poor inspiration. Small bibasilar effusions and atelectatic changes are suspec audra. The upper lung zones are clear. No pneumothorax. Additional findings: None. IMPRESSION: Small bilateral pleural effusions. Signer Name: Arun Osman Jr, MD Signed: 04/14/2021 4:13 PM Workstation Name: [id number]
--- NOTE | 2021-04-14 16:18 | Ultrasound Report ---
ULTRASOUND-GUIDED PARACENTESIS HISTORY: ascitis. PROCEDURE: The risks (including but not limited to bleeding, infection, and bowel injury) and benefi ts were explained to the patient and informed consent was obtained. A time out procedure was perform ed. Ultrasound was used to evaluate the abdomen and locate the largest ascites fluid pocket. Once the sk in was marked, the procedure site was prepped and draped in the usual sterile fashion and lidocaine w as used for local anesthesia. A 5 [place] centesis catheter was placed. The patient was monitored cl osely throughout the procedure, and a total of 1800 mL of yellow fluid was aspirated. 60 cc were lyle ed for laboratory analysis if needed. The patient tolerated the procedure well with no complications. IMPRESSION: Successful ultrasound-guided paracentesis as described. Signer Name: Arun Osman Jr, MD Signed: 04/14/2021 4:14 PM Workstation Name: [id number]
[2021-04-14 16:35] VITALS: BP 107/63
[2021-04-17 12:40] LABS: LDH,Body Fluid 37; Total Protein,Body Fluid < 3.0 (15.0-45.0)
== END 2021-04-14 17:00 | disposition home or self-care (01) | DRG 441 ==
LOC: ED 05:52 → 4A 11:17
PROVIDERS: ADMIT Internal Medicine; ATTEND Internal Medicine
PROC: 0W9G3ZZ Drainage of Peritoneal Cavity, Percutaneous Approach (ICD-10-PCS; principal; 2021-04-12)
PROC: 0W9G3ZZ Drainage of Peritoneal Cavity, Percutaneous Approach (ICD-10-PCS; 2021-04-14)
DX: K72.00 Acute and subacute hepatic failure without coma (principal); U07.1 COVID-19; J12.82 Pneumonia due to coronavirus disease 2019; R65.11 Systemic inflammatory response syndrome (SIRS) of non-infectious origin with acute organ dysfunction; K86.0 Alcohol-induced chronic pancreatitis; K70.11 Alcoholic hepatitis with ascites; F10.20 Alcohol dependence, uncomplicated; D64.9 Anemia, unspecified; F41.9 Anxiety disorder, unspecified; Z98.51 Tubal ligation status; E87.6 Hypokalemia
CPT/HCPCS: 36415; 49083; 71045; 74177; 76700; 80048; 80053; 80074; 80164; 80320; 82040; 82140; 82947; 83605; 83615; 83690; 83735; 84132; 84160; 84703; 85007; 85025; 85027; 85610; 85730; 87040; 87116; 88112; 88305; 89051; G0378; Q0162; G0480; J0456; J0696; J1650; J2270; J2405; J2765; J3480; J7030; J7040; J7120; P9047; Q9967; U0003